=== PATIENT | female | born 1970 | race Caucasian/White ===

== ENCOUNTER 2020-07-20 08:04 | Outpatient (CLI) | payer OTHER, SELFPAY ==
--- NOTE | ~2020-07-20 | MM_ITS ---
EXAMINATION: MM screening trevor BI w cindi HISTORY: Screening mammogram TECHNIQUE: Craniocaudal and mediolateral oblique 3-D tomosynthesis images were obtained and synthetic 2-D images were generated. CAD analysis was submitted and interpreted. COMPARISON: 06/14/2019, 12/30/2017, 12/10/2016 bilateral digital screening mammogram examinations BREAST PARENCHYMAL COMPOSITION: There are scattered areas of fibroglandular density. FINDINGS: There is no evidence of suspicious mass, calcification, or architectural distortion to sugg est malignancy in either breast. There has been no suspicious interval change. IMPRESSION: 1. No mammographic evidence of malignancy. 2. Recommend routine screening mammography in one year. BI-RADS Category 1: Negative Reviewed, dictated and finalized at location A.
== END 2020-07-20 08:05 | disposition home or self-care (01) ==
LOC: ANHIMG 08:06
PROVIDERS: PCP Family Medicine; Visit Provider Obstetrics & Gynecology
DX: Z12.31 Encounter for screening mammogram for malignant neoplasm of breast (principal)
CPT/HCPCS: 77063; 77067

== ENCOUNTER 2020-07-26 07:35 | Outpatient (CLI) | payer OTHER, SELFPAY ==
[2020-07-26 08:13] LABS: Hemoglobin 13.2 g/dL (12.0-15.0); Mean Corpuscular Hemoglobin 31.8 pg (26-34); Mean Corpuscular Volume 96.4 fl (80-100); Mean Platelet Volume 9.7 fl (7.4-10.4); Platelet Count Result 313 k/mm3 (150-375); Red Blood Count 4.15 M/mm3 (4.2-5.4); Red Cell Distribution Width 12.6 % (11.5-14.5); White Blood Count 9.8 K/mm3 (4.5-10.0)
[2020-07-26 08:28] LABS: Alanine Aminotransferase 25 U/L (4-35); Albumin Level 4.1 g/dL (3.5-5.1); Alkaline Phosphatase 100 U/L (38-126); Anion Gap 9 mmol/L (8-16); Aspartate Amino Transferase 27 U/L (14-36); Bilirubin,Total 0.5 mg/dL (0.2-1.3); Blood Urea Nitrogen 13 mg/dL (7-17); Calcium 9.1 mg/dL (8.4-10.2); Carbon Dioxide 27 mmol/L (22-30); Chloride 102 mmol/L (98-107); Cholesterol 181 mg/dL (0-200); Estimated Glomerular Filt Rate > 60; Glucose 134 mg/dL (65-105); HDL Direct 42 mg/dL; Potassium 3.8 mmol/L (3.4-5.0); Sodium 138 mmol/L (137-145); Triglycerides 246 mg/dL (<150); Uric Acid 5.6 mg/dL (2.5-7.5)
[2020-07-26 08:31] LABS: Hemoglobin A1C 7.1 % (<5.7)
[2020-07-26 09:22] LABS: LDL Cholesterol Direct 102 mg/dL
== END 2020-07-26 07:36 | disposition home or self-care (01) ==
PROVIDERS: PCP Family Medicine; Visit Provider Nurse Practitioner Family
DX: E78.2 Mixed hyperlipidemia (principal); I10 Essential (primary) hypertension; Z13.29 Encounter for screening for other suspected endocrine disorder; M79.676 Pain in unspecified toe(s); E11.9 Type 2 diabetes mellitus without complications
CPT/HCPCS: 36415; 80053; 80061; 83036; 84443; 84550; 85027

== ENCOUNTER 2020-09-15 23:12 | Emergency (ER) | payer OTHER, SELFPAY ==
--- NOTE | 2020-09-15 23:20 | PC.NURSE ---
pt walked out of ER before being seen by provider. pt states her symptoms has subsided. 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 pt ambulated out of facility w/ steady gait.
[2020-09-15 23:46] VITALS: BP 168/84; PULSE 78; RESP 16; TEMP 36.6; O2SAT 100
== END 2020-09-15 23:48 | disposition left against medical advice (07) ==
LOC: ANHED 23:28
PROVIDERS: PCP Family Medicine
DX: Z53.21 Procedure and treatment not carried out due to patient leaving prior to being seen by health care provider (principal)
CPT/HCPCS: 99199

== ENCOUNTER 2021-02-04 07:46 | Outpatient (CLI) | payer OTHER, SELFPAY ==
[2021-02-04 08:48] LABS: Hemoglobin A1C 7.4 % (<5.7)
[2021-02-04 09:37] LABS: Vitamin D 25 Hydroxy 47.5 ng/mL
== END 2021-02-04 07:47 | disposition home or self-care (01) ==
PROVIDERS: PCP Family Medicine; Visit Provider Physician Assistant Medical
DX: E11.9 Type 2 diabetes mellitus without complications (principal); E55.9 Vitamin D deficiency, unspecified
CPT/HCPCS: 36415; 82306; 83036

== ENCOUNTER 2021-07-25 09:17 | Emergency (ER) | payer OTHER, SELFPAY ==
[2021-07-25] VITALS (7 sets, daily range): BP systolic 116–153; BP diastolic 65–104; PULSE 65–86; RESP 16–18; TEMP 36.4–36.9; O2SAT 96–99
--- NOTE | 2021-07-25 09:36 | ECG_ITS ---
Measurements Intervals [place] Rate: 79 P: 54 [place]: 151 QRS: 36 QRSD: 94 T: 18 QT: 416 QTc: 479 Interpretive Statements SINUS RHYTHM MINIMAL Q WAVES- INF/LAT LEADS BORDERLINE ST-T WAVE ABNORMALITY- INFERIOR LEADS BASELINE ARTIFACT- I, II, III, AVR, AVL, AVF BORDERLINE ECG Electronically Signed On 07-25-2021 10:03:45 CDT by Marito Wesley D.O.
--- NOTE | 2021-07-25 09:46 | ED.GENADULT ---
HPI - General Adult General Chief complaint: Recheck/Abnormal Lab/Rx Stated complaint: High blood pressure Time Seen by Provider: 07/25/21 09:35 History of Present Illness HPI narrative: Patient is a 51-year-old female with past medical history significant for hypertension, hyperlipidemia, diabetes, obesity who comes to the ED today with concerns for elevated blood pressure. 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 Because of that she checked her blood pressure with her home blood pressure machine and it did not give a number it just read high . She had just taken her blood pressure medications which included metoprolol and losartan. She says she is compliant with her medications. After seeing the high blood pressure reading she developed epigastric discomfort and nausea with vomiting and lightheadedness. She also notes that she has been having a right-sided headache but says that she has this frequently and it is mild and she typically does not even take any medicines for it. Admits to previous history of similar symptoms of the epistaxis and the nausea which was felt to be related to elevated blood pressure reading, however at that point her blood pressure did register on her home machine and it was in the 180s systolically. Denies any recent changes to her blood pressure regimen. No known history of CAD, denies any chest pain or shortness of breath, has never had a stress test before cardiac cath. At the time of my interview she says that she is feeling better and his blood pressure is at reasonable levels. Related Data Allergies Allergy/AdvReac Type Severity Reaction Status Date / Time PETER Inhibitors Allergy Unknown unknown Verified 04/01/21 08:33 Review of Systems Constitutional: Constitutional: Reports as per HPI, Denies fever(s), Denies night sweats and Denies weakness Cardiovascular: Cardiovascular: Denies chest pain, Denies edema, Denies leg edema, Denies dyspnea and Denies orthopnea Respiratory: Respiratory: Denies cough and Denies dyspnea Gastrointestinal: Gastrointestinal: Denies abdominal pain, Denies constipation, Denies diarrhea, Reports nausea and Reports vomiting Musculoskeletal: Musculoskeletal: Denies abnormal gait, Denies back pain, Denies numbness and Denies tingling Neurologic: Denies Abnormal speech present, Denies abnormal gait, Reports dizziness, Denies numbness, Denies tingling and Denies weakness Psychiatric: Psychiatric: Denies homicidal ideation and Denies suicidal ideation FORMERLY [facility] Past Medical History Medical History Bilateral hip bursitis Morbid (severe) obesity due to excess calories Trochanteric bursitis Family History Family History Grandparent Hypertension Family history of lung cancer Mother Hypertension Asthma Hyperlipidemia GERD (gastroesophageal reflux disease) Father No problems noted. 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
[2021-07-25] MEDS: FAMOTIDINE 20 MG/2 ML VIAL IV PUSH (09:54)
[2021-07-25] MEDS: ONDANSETRON INJ 4 MG/2 ML VIAL IV PUSH (09:54)
[2021-07-25 10:10] LABS: Basophils Percent Auto 0.4 % (0.2-1.2); Eosinophils Absolute Auto 0.2 K/mm3 (0-0.3); Eosinophils Percent Auto 2.2 % (0-4.4); Hematocrit 39.7 % (37.0-47.0); Hemoglobin 13.2 g/dL (12.0-15.0); Immature Granulocyte Absolute 0.05 K/mm3 (0.00-0.031); Immature Granulocyte Percent A 0.6 % (0-0.5); Mean Corpuscular HGB Conc 33.2 g/dl (32-36); Mean Corpuscular Hemoglobin 31.7 pg (26-34); Mean Corpuscular Volume 95.2 fl (80-100); Mean Platelet Volume 9.8 fl (7.4-10.4); Monocytes Absolute Auto 0.6 K/mm3 (0.1-0.6); Monocytes Percent Auto 6.5 % (2.6-8.5); Neutrophils Absolute Auto 5.3 K/mm3 (1.3-6.7); Neutrophils Percent Auto 59.3 % (45.5-73.1); Platelet Count Result 287 k/mm3 (150-375); Red Blood Count 4.17 M/mm3 (4.2-5.4); Red Cell Distribution Width 12.5 % (11.5-14.5)
[2021-07-25 10:12] LABS: Add Urine Microscopic? YES; Appearance Urine Clear (Clear); Bilirubin Urine Negative (Negative); Blood Urine Negative (Negative); Color Urine Straw (Yellow); Glucose Urine UA 3+ mg/dL (Negative); Ketones Urine Negative (Negative); Leukocyte Esterase Ur Negative LEU/UL (Negative); Nitrate Urine Negative (Negative); Protein Urine Negative (Negative); RBC Urine 0-2 /hpf (0-2); Specific Grav Ur 1.009 (1.001-1.035); Squamous Epithelial Cell Urine Rare /hpf (Few); Urobilinogen Urine Negative mg/dL (<2.0); WBC Urine 0-3 /hpf
[2021-07-25 10:31] LABS: Troponin I < 0.012 ng/mL (0.000-0.034)
[2021-07-25 10:46] LABS: Alanine Aminotransferase 32 U/L (4-35); Albumin Level 4.3 g/dL (3.5-5.1); Alkaline Phosphatase 108 U/L (38-126); Anion Gap 14 mmol/L (8-16); Aspartate Amino Transferase 38 U/L (14-36); Bilirubin,Total 0.4 mg/dL (0.2-1.3); Blood Urea Nitrogen 14 mg/dL (7-17); Calcium 9.1 mg/dL (8.4-10.2); Carbon Dioxide 20 mmol/L (22-30); Chloride 100 mmol/L (98-107); Estimated CRCL calculation 97 ml/min; Estimated Glomerular Filt Rate > 60; Glucose 398 mg/dL (65-110); Lipase 169 U/L (23-300); Sodium 134 mmol/L (137-145)
[2021-07-25 11:02] LABS: Potassium 3.8 mmol/L (3.4-5.0)
[2021-07-25 12:35] LABS: Hemoglobin A1C 9.8 % (<5.7)
[2021-07-25 12:54] LABS: Troponin I < 0.012 ng/mL (0.000-0.034)
== END 2021-07-25 13:40 | disposition home or self-care (01) ==
PROVIDERS: Physician Assistant Medical; Emergency Provider Emergency Medicine; PCP Family Medicine
DX: I10 Essential (primary) hypertension (principal); R11.2 Nausea with vomiting, unspecified; E78.5 Hyperlipidemia, unspecified; E11.9 Type 2 diabetes mellitus without complications; E66.01 Morbid (severe) obesity due to excess calories; Z68.39 Body mass index [BMI] 39.0-39.9, adult; Z77.22 Contact with and (suspected) exposure to environmental tobacco smoke (acute) (chronic); R94.31 Abnormal electrocardiogram [ECG] [EKG]; Z79.84 Long term (current) use of oral hypoglycemic drugs
CPT/HCPCS: 36415; 80053; 81001; 81025; 83036; 83690; 84484; 85025; 93005; 96374; 96375; 99284; J2405

== ENCOUNTER 2021-08-06 07:49 | Outpatient (CLI) | payer OTHER, SELFPAY ==
[2021-08-06 08:16] LABS: Hematocrit 39.8 % (37.0-47.0); Hemoglobin 12.9 g/dL (12.0-15.0); Mean Corpuscular HGB Conc 32.4 g/dl (32-36); Mean Corpuscular Hemoglobin 31.5 pg (26-34); Mean Corpuscular Volume 97.1 fl (80-100); Mean Platelet Volume 9.2 fl (7.4-10.4); Platelet Count Result 278 k/mm3 (150-375); Red Cell Distribution Width 12.7 % (11.5-14.5); White Blood Count 8.7 K/mm3 (4.5-10.0)
[2021-08-06 08:44] LABS: Alanine Aminotransferase 60 U/L (4-35); Alkaline Phosphatase 78 U/L (38-126); Amylase 69 U/L (30-110); Anion Gap 7 mmol/L (8-16); Aspartate Amino Transferase 68 U/L (14-36); Bilirubin,Total 0.5 mg/dL (0.2-1.3); Blood Urea Nitrogen 8 mg/dL (7-17); Calcium 8.6 mg/dL (8.4-10.2); Carbon Dioxide 27 mmol/L (22-30); Chloride 104 mmol/L (98-107); Cholesterol 201 mg/dL (0-200); Estimated Glomerular Filt Rate > 60; Glucose 177 mg/dL (65-110); HDL Direct 49 mg/dL; Lipase 81 U/L (23-300); Sodium 138 mmol/L (137-145); Triglycerides 284 mg/dL (<150)
[2021-08-06 08:55] LABS: LDL Cholesterol Direct 108 mg/dL
== END 2021-08-06 07:50 | disposition home or self-care (01) ==
LOC: ANHLAB 07:51
PROVIDERS: PCP Family Medicine; Visit Provider Nurse Practitioner Family
DX: R10.9 Unspecified abdominal pain (principal); Z13.220 Encounter for screening for lipoid disorders; Z13.29 Encounter for screening for other suspected endocrine disorder
CPT/HCPCS: 36415; 80053; 80061; 82150; 83690; 84443; 85027

== ENCOUNTER 2021-08-17 07:50 | Outpatient (CLI) | payer OTHER, SELFPAY ==
--- NOTE | ~2021-08-17 | US_ITS ---
US abdomen limited DATE: 08/17/2021 08:15 INDICATION: Abdominal pain, nausea and vomiting TECHNIQUE: Real-time imaging of liver, pancreas, gallbladder COMPARISON: 12/25/2011 CT abdomen pelvis FINDINGS: There is hepatic steatosis. No hepatic space-occupying mass lesion is evident. Normal hepat opedal portal venous flow direction. The pancreas is partially obscured by bowel gas. No gallstones or gallbladder wall thickening are detected. Negative sonographic Augustine's sign. The co mmon bile duct measures 3.8 mm, normal. IMPRESSION: Hepatic steatosis Limited visualization of pancreas Reviewed, dictated and finalized at Location A. Reviewed, dictated and finalized at location A.
== END 2021-08-17 07:51 | disposition home or self-care (01) ==
LOC: ANHIMG 07:56
PROVIDERS: PCP Family Medicine; Visit Provider Nurse Practitioner Family
DX: R10.9 Unspecified abdominal pain (principal); K76.0 Fatty (change of) liver, not elsewhere classified
CPT/HCPCS: 76705

== ENCOUNTER 2021-08-26 07:47 | Outpatient (CLI) | payer OTHER, SELFPAY ==
[2021-08-26 08:34] LABS: Alanine Aminotransferase 40 U/L (4-35); Albumin Level 4.3 g/dL (3.5-5.1); Alkaline Phosphatase 95 U/L (38-126); Aspartate Amino Transferase 41 U/L (14-36); Bilirubin,Total 0.4 mg/dL (0.2-1.3)
[2021-08-26 08:59] LABS: Hepatitis B Surface Antigen Negative (Negative)
[2021-08-26 09:05] LABS: HAV RESULT Negative (Negative); Hepatitis B Core IgM Result Negative (Negative)
[2021-08-26 09:16] LABS: Hepatitis C Virus Antibody Negative (Negative)
[2021-08-29 07:21] LABS: GGT 20 U/L (3-55)
== END 2021-08-26 07:48 | disposition home or self-care (01) ==
PROVIDERS: PCP Family Medicine; Visit Provider Nurse Practitioner Family
DX: R74.01 Elevation of levels of liver transaminase levels (principal)
CPT/HCPCS: 36415; 80074; 80076; 82977

== ENCOUNTER 2021-09-06 08:04 | Outpatient (CLI) | payer OTHER, SELFPAY ==
--- NOTE | ~2021-09-06 | NM_ITS ---
EXAMINATION: NM hepatobiliary wo pharm DATE: 09/06/2021 10:42 INDICATION: Elevation of levels of liver transaminases. COMPARISON: Ultrasound 08/17/2021 TECHNIQUE: 4.7 mCi Tc-99m mebrofenin (Choletec) was administered intravenously. Scintigraphic images of the abdomen were obtained for one hour. Then, the patient drank 8 oz Ensure, and imaging was cont inued for 60 minutes. FINDINGS: There is normal clearance of radiotracer from the blood pool. There is homogeneous tracer u ptake by the liver. Activity progresses to the bowel and gallbladder. Gallbladder ejection fraction (GBEF) was 94%. Note that with this technique, normal GBEF >= 33%. IMPRESSION: 1. Normal hepatobiliary scintigraphy. Reviewed, dictated and finalized at location A. CD REACTOR OPERATOR
== END 2021-09-06 08:05 | disposition home or self-care (01) ==
PROVIDERS: PCP Family Medicine; Visit Provider Nurse Practitioner Family
DX: R74.01 Elevation of levels of liver transaminase levels (principal)
CPT/HCPCS: 78226; A9537

== ENCOUNTER 2021-09-09 09:43 | Emergency (ER) | payer OTHER, SELFPAY ==
--- NOTE | ~2021-09-09 | CT_ITS ---
EXAMINATION: CT abdomen pelvis wo con EXAM DATE: 09/09/2021 10:50 INDICATION: Right-sided flank pain. History of kidney stones. TECHNIQUE: Spiral CT of the abdomen and pelvis was performed without contrast. Axial, coronal and sag ittal images were reviewed. The dose-length product (DLP) for this examination was 366.13 mGy-cm. T he exposure was tailored according to patient size (auto mA exposure control), and iterative reconstr uction (ASIR) was used as additional dose reduction technique. Comparison is made to prior examinatio n from 12/25/2011. FINDINGS: There is a 5 mm stone in the right ureterovesicular junction, mild to moderate hydrouretero nephrosis. There is additional 2 mm right superior calyceal stone. No left nephrolithiasis. The uter us is retroverted and morphologically normal. The bladder is undistended at time of imaging. The l iver, spleen, adrenal glands and pancreas are unremarkable. Gallbladder is unremarkable. No biliary obstruction. There is no retroperitoneal or pelvic lymphadenopathy. The appendix is normal. There is mild descending/sigmoid colonic diverticulosis. There is no adjacen t inflammatory change to suggest diverticulitis. The stomach and small bowel are unremarkable. Ther e is expected amount of colonic stool. No free intraperitoneal gas. The heart is normal in size. There are no pericardial or pleural effusions. The lung bases are unremarkable. There are no osteo blastic or osteolytic lesions identified. IMPRESSION: 1. Right UVJ 5 mm stone, mild to moderate hydroureteronephrosis. consultants would appreciate [facility] [place] KUB. 2. Punctate right nephrolithiasis. Reviewed, dictated and finalized at location B. OLE CASER IMPRESSION: 1. Right UVJ 5 mm stone, mild to moderate hydroureteronephrosis. [facility] consultant s would appreciate baseline KUB. 2. Punctate right nephrolithiasis.
--- NOTE | ~2021-09-09 | XR_ITS ---
EXAMINATION: XR abdomen/kub 1V DATE: 09/09/2021 11:35 INDICATION: Right ureterovesicular junction stone. TECHNIQUE: A supine view of the abdomen was obtained. COMPARISON: CT abdomen and pelvis 09/09/2021 FINDINGS: There are no dilated loops of bowel. There is a phlebolith in right pelvis. There is a 5 mm stone at right ureterovesicular junction. IMPRESSION: 1. 5 mm stone at right ureterovesicular junction. Reviewed, dictated and finalized at location A. BING MACHINE OPERATOR
[2021-09-09 09:56] VITALS: BP 154/103; PULSE 82; RESP 18; TEMP 36.8; O2SAT 100
[2021-09-09 10:27] LABS: Basophils Percent Auto 0.4 % (0.2-1.2); Eosinophils Absolute Auto 0.1 K/mm3 (0-0.3); Eosinophils Percent Auto 0.7 % (0-4.4); Hematocrit 41.6 % (37.0-47.0); Hemoglobin 14.1 g/dL (12.0-15.0); Immature Granulocyte Absolute 0.02 K/mm3 (0.00-0.031); Immature Granulocyte Percent A 0.2 % (0-0.5); Lymphocytes Absolute Auto 1.92 K/mm3 (0.9-3.2); Lymphocytes Percent Auto 20.5 % (18.3-44.2); Mean Corpuscular HGB Conc 33.9 g/dl (32-36); Mean Corpuscular Hemoglobin 31.5 pg (26-34); Mean Corpuscular Volume 92.9 fl (80-100); Mean Platelet Volume 8.9 fl (7.4-10.4); Monocytes Absolute Auto 0.7 K/mm3 (0.1-0.6); Monocytes Percent Auto 7.2 % (2.6-8.5); Neutrophils Absolute Auto 6.7 K/mm3 (1.3-6.7); Platelet Count Result 337 k/mm3 (150-375); Red Blood Count 4.48 M/mm3 (4.2-5.4); Red Cell Distribution Width 12.3 % (11.5-14.5); White Blood Count 9.4 K/mm3 (4.5-10.0)
[2021-09-09 10:42] LABS: Alanine Aminotransferase 39 U/L (4-35); Albumin Level 4.7 g/dL (3.5-5.1); Alkaline Phosphatase 107 U/L (38-126); Anion Gap 11 mmol/L (8-16); Aspartate Amino Transferase 34 U/L (14-36); Bilirubin,Total 0.6 mg/dL (0.2-1.3); Blood Urea Nitrogen 9 mg/dL (7-17); Calcium 9.2 mg/dL (8.4-10.2); Carbon Dioxide 25 mmol/L (22-30); Chloride 102 mmol/L (98-107); Estimated Glomerular Filt Rate > 60; Glucose 159 mg/dL (65-110); Potassium 3.7 mmol/L (3.4-5.0); Sodium 138 mmol/L (137-145)
[2021-09-09 11:20] VITALS: BP 138/69; PULSE 79; RESP 18; O2SAT 99
--- NOTE | 2021-09-09 11:26 | PC.NURSE ---
Bedside report to MICHAEL Capps, to continue care. Pt has had emesis and states pain is not easing up. Has attempted to void x3 times, feels has to go but is unable to produce more than 2 cc's of reddish urine. MYLES Guillen, made aware.
--- NOTE | 2021-09-09 11:52 | ED.GENADULT ---
HPI - General Adult General Chief complaint: Back Pain/Injury Stated complaint: flank pain Time Seen by Provider: 09/09/21 09:55 Source: patient Mode of arrival: ambulatory Limitations: no limitations History of Present Illness HPI narrative: Patient is a 51-year-old female with history of kidney stones and diabetes mellitus presented with chief complaint of right lower flank pain that is radiating into her right groin that began today. Patient reports the symptoms began today but she has been having some right-sided abdominal pain accompanied by nausea and vomiting over the past 2 weeks. Patient states that she has been under the management of her primary care who is working her up for gallbladder dysfunction but she has had a normal gallbladder ultrasound and HIDA scan. Patient states that she has seen Dr. Gutierrez in the past for kidney stones and has had to have 2 stents placed. Patient reports that she feels that she is having trouble urinating. She states she does not know if it is because of her decreased p.o. intake or inability to urinate. She denies fever, chills, chest pain or shortness of breath. Related Data Allergies Allergy/AdvReac Type Severity Reaction Status Date / Time PETER Inhibitors AdvReac Unknown Cough Verified 09/09/21 10:03 Review of Systems Review of Systems: CONSTITUTIONAL: Denies fever, chills, or sweats. EYES: Denies visual changes, redness, or discharge. ENT: Denies rhinorrhea, congestion, sore throat, or otalgia. CARDIOVASCULAR: Denies chest pain, palpitations, or edema. RESPIRATORY: Denies cough or dyspnea. GASTROINTESTINAL: Reports abdominal pain, nausea, vomiting denies diarrhea. GENITOURINARY: Reports, flank pain dysuria or hematuria. SKIN: Denies rash or itching. MUSCULOSKELETAL: Denies back pain, joint pain, or myalgia. NEUROLOGIC: Denies headache, numbness, dizziness, or weakness. PSYCHIATRIC: Denies anxiety or depression. [facility]LY [facility] Past Medical History Medical History (Updated 09/09/21 @ 14:37 by Tere Guillen PA-C) Bilateral hip bursitis Hepatic steatosis Morbid (severe) obesity due to excess calories Trochanteric bursitis Family History Family History Grandparent Hypertension Family history of lung cancer Mother Hypertension Asthma Hyperlipidemia GERD (gastroesophageal reflux disease) Father No problems noted. 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 HEAD: Normocephalic, atraumatic. EYES: PERRLA and EOMI. ENT: Nares clear, no rhinorrhea or epistaxis. Mucous membranes moist. Oropharynx without tonsillar hypertrophy exudate or other lesions. Bilateral TMs pearly bruce nonbulging NECK: Supple. Range of motion intact. CHEST: Clear to auscultation. No respiratory distress. No wheezes rales or rhonchi HEART: Regular rate and rhythm. No murmur heard. Normal peripheral pulses. ABDOMEN: Right CVA tenderness with percussion. Soft, diffuse abdominal tenderness, do not appreciate distention, normal active bowel sounds. EXTREMITIES: Normal range of motion. No edema. SKIN: Warm, dry, no rash. NEURO: No focal deficits. Alert and oriented x3. PSYCH: Normal mood and affect. Course Vital Signs Vital signs: Vital Signs Temperature 98.3 F 09/09/21 09:56 Pulse Rate 82 09/09/21 09:56 Respiratory Rate 18 09/09/21 09:56 Blood Pressure 154/103 H 09/09/21 09:56 Pulse Oximetry 100 09/09/21 09:56 Temperature 98.3 F 09/09/21 09:56 Pulse Rate 71 11
[2021-09-09] MEDS: SODIUM CHLORIDE 0.9% IV 1,000 ML 999 ML IV CONT (11:55)
[2021-09-09] MEDS: ONDANSETRON INJ 4 MG/2 ML VIAL IV PUSH (11:59)
[2021-09-09] MEDS: KETOROLAC 30 MG/ML VIAL (*BKC) IV PUSH (11:59)
[2021-09-09 12:38] VITALS: BP 130/77; PULSE 70; RESP 18; O2SAT 100
[2021-09-09 13:08] LABS: Add Urine Microscopic? YES; Appearance Urine Cloudy (Clear); Bilirubin Urine Negative (Negative); Blood Urine 3+ (Negative); Color Urine Yellow (Yellow); Glucose Urine UA Negative (Negative); Ketones Urine Negative (Negative); Leukocyte Esterase Ur Negative LEU/UL (Negative); Mucus Urine Moderate /lpf; Nitrate Urine Negative (Negative); Protein Urine 1+ mg/dL (Negative); RBC Urine >75 /hpf (0-2); Specific Grav Ur 1.024 (1.001-1.035); Squamous Epithelial Cell Urine Occasional /hpf (Few); Urobilinogen Urine Negative mg/dL (<2.0)
[2021-09-09 13:37] VITALS: BP 142/79; PULSE 71; RESP 18; O2SAT 100
[2021-09-09 14:40] VITALS: BP 124/82; PULSE 78; RESP 18; O2SAT 99
== END 2021-09-09 14:45 | disposition home or self-care (01) ==
PROVIDERS: Physician Assistant; Emergency Provider Emergency Medicine; PCP Family Medicine
DX: N13.2 Hydronephrosis with renal and ureteral calculous obstruction (principal); E66.01 Morbid (severe) obesity due to excess calories; Z68.41 Body mass index [BMI] 40.0-44.9, adult; Z77.22 Contact with and (suspected) exposure to environmental tobacco smoke (acute) (chronic)
CPT/HCPCS: 36415; 74018; 74176; 80053; 81001; 81025; 85025; 87086; 87088; 96361; 96374; 96375; 99284; J1885; J2405; J7030

== ENCOUNTER 2021-09-09 23:45 | Observation (INO) | payer OTHER, SELFPAY ==
--- NOTE | ~2021-09-09 | XR_ITS ---
EXAMINATION: XR retrograde pyelo w/stent RT DATE: 09/10/2021 16:45 INDICATION: Obstructing distal right ureteral stone for retrograde Polygram with stent placement. TECHNIQUE: 5 fluoroscopic images of the abdomen and pelvis were obtained during procedure performed frieda Redman. Radiologist was not present for the imaging or procedure. The amount of fluoroscopy t natan used during this procedure was 0.3 minutes. COMPARISON: CT dated 09/09/2021 FINDINGS: The right-sided nephrolithiasis including the obstructing stone at right ureterovesicular junction is unable to be identified on the oil pipe inspector helper fluoroscopic images. Subsequent images demonstrate retrograde c ontrast injections into the right ureter demonstrating moderate right hydroureter and hydronephrosis. A wire and subsequently an internal ureteral stent are advanced into the right renal pelvis. Final i mages demonstrate the stent with loops formed in the bladder and right renal pelvis. IMPRESSION: 1. Moderate right hydroureteronephrosis resulting from a previously identified obstructing stone at r ight ureterovesicular junction which is not clearly visualized on the provided images and unclear whe ther this has been extracted. Correlate with procedure note. 2. Placement of a right internal ureteral stent which is in expected position. Reviewed, dictated and finalized at location A. SION ROAD SUPERVISOR IMPRESSION: 1. Moderate right hydroureteronephrosis resulting from a previously identified obstructing stone at right ureterovesicular junction which is not clearly visua lized on the provided images and unclear whether this has been extracted. Corre late with procedure note. 2. Placement of a right internal ureteral stent which is in expected position.
[2021-09-10] VITALS (12 sets, daily range): BP systolic 101–157; BP diastolic 65–119; PULSE 79–121; RESP 14–20; TEMP 36.2–37; O2SAT 94–99; BMI 62.4
--- NOTE | 2021-09-10 00:15 | ED.ABDPAIN ---
HPI - Abdominal Pain General Chief Complaint: Abdominal Pain Stated Complaint: r side flank pain Time Seen by Provider: 09/10/21 00:12 Source: patient Mode of arrival: ambulatory Limitations: no limitations History of Present Illness HPI narrative: Patient is a 51-year-old female complaining of right flank pain, 08/04, sharp, radiating to right groin accompanied by nausea and vomiting that started prior to arrival. Patient was seen here earlier today for the same complaint, was diagnosed with a 5 mm UVJ stone and discharged home. Patient states that the pain recurred accompanied by nausea vomiting and that is why she is here. Related Data Allergies Allergy/AdvReac Type Severity Reaction Status Date / Time PETER Inhibitors AdvReac Unknown Cough Verified 09/09/21 10:03 Review of Systems Review of Systems: All systems reviewed & are unremarkable except as noted in HPI and below Constitutional: Constitutional: Denies body ache(s), Denies chills, Denies excessive sweating, Denies fatigue, Denies fever(s), Denies headache(s), Denies lethargy, Denies malaise, Denies weakness and Denies weight loss Eyes: Eyes: Denies blurry vision, Denies change in vision and Denies loss of vision ENT: Denies dizziness, Denies ear discharge, Denies headache(s), Denies lip swelling, Denies epistaxis, Denies nasal congestion, Denies neck pain, Denies throat swelling and Denies tongue swelling Cardiovascular: Cardiovascular: Denies chest pain, Denies chest pain at rest, Denies chest pain with activity, Denies diaphoresis, Denies rapid heart rate, Denies edema, Denies irregular heart rhythm, Denies lightheadedness, Denies palpitations, Denies dyspnea and Denies dyspnea on exertion Respiratory: Respiratory: Denies chest congestion, Denies cough, Denies hemoptysis, Denies dyspnea and Denies dyspnea on exertion Gastrointestinal: Gastrointestinal: Denies abdominal pain, Denies melena, Denies hematochezia, Denies diarrhea and Denies hematemesis Musculoskeletal: Musculoskeletal: Denies abnormal gait, Denies deformity, Denies joint swelling, Denies limited range of motion, Denies neck pain and Denies numbness Neurologic: Denies Abnormal speech present, Denies abnormal gait, Denies confusion, Denies dizziness, Denies headache(s), Denies focal weakness, Denies loss of vision, Denies numbness, Denies Other visual disturbances, Denies Sensory deficit (Neuro) and Denies weakness Psychiatric: Psychiatric: Denies confusion, Denies depression, Denies auditory hallucinations, Denies homicidal ideation and Denies suicidal ideation Endocrine: Endocrine: Denies cold intolerance, Denies excessive sweating, Denies fatigue, Denies heat intolerance and Denies palpitations Hematologic/Lymphatic: Hematologic/Lymphatic: Denies easy bleeding and Denies easy bruising Allergic/Immunologic: Allergic/Immunologic: Denies lip swelling, Denies throat swelling and Denies tongue swelling PMFSH Past Medical History Medical History Bilateral hip bursitis Hepatic steatosis Morbid (severe) obesity due to excess calories Trochanteric bursitis Family History Family History Grandparent Hypertension Family history of lung cancer Mother Hypertension Asthma Hyperlipidemia GERD (gastroesophageal reflux disease) Father No problems noted. 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
[2021-09-10] MEDS: SODIUM CHLORIDE 0.9% IV 1,000 ML 999 ML IV CONT (00:21)
[2021-09-10] MEDS: PROMETHAZINE HCL 25 MG/ML AMPUL 12.5 MG IV PUSH (00:22)
[2021-09-10] MEDS: HYDROmorphone HCL INJ (*CRX) 1 MG/ML SYR IV PUSH ×2 (00:22→02:58)
[2021-09-10 00:29] LABS: Basophils Percent Auto 0.2 % (0.2-1.2); Eosinophils Percent Auto 0.2 % (0-4.4); Hematocrit 41.4 % (37.0-47.0); Immature Granulocyte Absolute 0.04 K/mm3 (0.00-0.031); Immature Granulocyte Percent A 0.3 % (0-0.5); Lymphocytes Absolute Auto 2.08 K/mm3 (0.9-3.2); Lymphocytes Percent Auto 16.1 % (18.3-44.2); Mean Corpuscular HGB Conc 33.8 g/dl (32-36); Mean Corpuscular Hemoglobin 31.8 pg (26-34); Mean Corpuscular Volume 94.1 fl (80-100); Mean Platelet Volume 9.1 fl (7.4-10.4); Monocytes Absolute Auto 0.7 K/mm3 (0.1-0.6); Monocytes Percent Auto 5.7 % (2.6-8.5); Neutrophils Percent Auto 77.5 % (45.5-73.1); Platelet Count Result 320 k/mm3 (150-375); Red Cell Distribution Width 12.5 % (11.5-14.5); White Blood Count 12.9 K/mm3 (4.5-10.0)
[2021-09-10 00:39] LABS: Anion Gap 13 mmol/L (8-16); Blood Urea Nitrogen 14 mg/dL (7-17); Calcium 9.7 mg/dL (8.4-10.2); Carbon Dioxide 23 mmol/L (22-30); Chloride 105 mmol/L (98-107); Estimated Glomerular Filt Rate 59; Glucose 177 mg/dL (65-110); Potassium 3.6 mmol/L (3.4-5.0); Sodium 141 mmol/L (137-145)
[2021-09-10] MEDS: ONDANSETRON INJ 4 MG/2 ML VIAL IV PUSH ×2 (02:57→13:38)
[2021-09-10] MEDS: LACTATED RINGERS 1,000 ML 125 ML IV CONT ×2 (03:02→11:08)
--- NOTE | 2021-09-10 03:18 | ADMGEN ---
This patient, Christine Patel, was admitted to Medical Room 244-. Patient/family oriented to hospital policies and general routines including ID bracelet, bed and alarms, visiting hours, pain management, procedures, bathroom and other care routines, personal items, smoking policy, room service/diet, and visiting hours. Information on how to activate the Rapid Response Team has been discussed. Patient/Family are encouraged to report perceived risks to care and to ask questions if they do not understand what they are told or what they should do.
[2021-09-10 07:19] LABS: Glucose Point of Care 117 mg/dl (65-105)
--- NOTE | 2021-09-10 09:10 | PM.IMHP ---
H&P: HPI History of Present Illness Date/Time: 09/10/21 09:10 Chief Complaint: Nausea/vomiting and Right CVA/Flank pain Narrative: Date/time seen: 09/10/21 09:10 Interval history: Patient is a 51 year old with a past medical history of HTN, kidney stones, HLD, and DM who presented to the ED with complaints of nausea, vomiting, and right flank pain. Patient stated that she has been battling abdominal pain for the last month. She was worked up for gallbladder, however, it all came back negative. However, yesterday she was having problems with nausea and vomiting that brought her to the ED, and was found to have a kidney stone x 5. She stated that she was discharged home with Tramadol and Zofran. She stated that she was taking this, when the nauseas and vomiting came back and was unrelieved with the medications that were prescribed, which brought her back to the ED. This round she noted that she was also having some right flank pain that accompanied the nausea and vomiting. She also stated that she is having frequency with very light urinary output. She stated that she knows most of this is due to her being dry. She denies odorous urine, and stated that her urine is slightly cloudy. She also admits to poor appetite, and stated that the last time she ate was yesterday. Currently she is not having any pain, however, she did just get a does of Dilaudid. She denies chest pain, shortness of breath, dizziness, weakness, sweats, fevers, chills, current nausea, vomiting, abdominal pain, weakness, fatigue, syncope, or falls. She also denies the use of Tums or drinking a lot of soda. She did state that she has had stones in the past that required her to have stents placed (10 years ago, and then some time before that.) Review of Systems Review of Systems: All systems reviewed & are unremarkable except as noted in HPI and below PMFSH Past Medical History Medical History Bilateral hip bursitis Diabetes type 2, controlled Essential (primary) hypertension GERD (gastroesophageal reflux disease) Hepatic steatosis History of kidney stones Hyperlipidemia Morbid (severe) obesity due to excess calories Trochanteric bursitis Surgical History Surgical History History of renal stent Family History Family History Grandparent Hypertension Family history of lung cancer Heart disease Uterine cancer Mother Hypertension Asthma Hyperlipidemia GERD (gastroesophageal reflux disease) Father Diabetes mellitus Sibling Hypertension GERD (gastroesophageal reflux disease) Social History Social History Social History: Patient lives with her of 30 years who will be her surrogate (Ziyad) that lives in [place], [place]. She has two daughters, one which is 23 and , and the other is 17 a senior in high school and wants to be a teacher. She wishes to be a full code at this time. 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
--- NOTE | 2021-09-10 09:29 | PM.IMPN ---
Progress Note: A&P Assessment and Plan (1) Hydronephrosis concurrent with and due to calculi of kidney and ureter: Code(s): N13.2 - Hydronephrosis with renal and ureteral calculous obstruction Status: Acute Assessment and Plan: Abd CT showed 1. Right UVJ 5 mm stone, mild to moderate hydroureteronephrosis. consultants would appreciate baseline KUB. 2. Punctate right nephrolithiasis. Urology consulted Scheduled for retrograde pyelo w/stents Strict I/O Dilaudid and oxicodone for pain Zofran for nausea NPO for now LR 125ml/hr (2) Acute unilateral obstructive uropathy: Code(s): N13.9 - Obstructive and reflux uropathy, unspecified Status: Acute Assessment and Plan: See above (3) Diabetes type 2, controlled: Code(s): E11.9 - Type 2 diabetes mellitus without complications Status: Acute Assessment and Plan: Current glucose 177 Hold home metformin and Ozempic Trend glucose SSI and accu checks NPO for surgical procedure (4) Essential (primary) hypertension: Code(s): I10 - Essential (primary) hypertension Status: Acute Assessment and Plan: Current blood pressure 140/65 Continue home losartan and metoprolol Trend BP adjust medications as needed (5) Mixed hyperlipidemia: Code(s): E78.2 - Mixed hyperlipidemia Status: Acute Assessment and Plan: Continue home lovastatin Time Spent With Patient Time with patient: Greater than 35 minutes Subjective Date/time seen: 09/10/21 09:10 Interval history: Patient is a 51 year old with a past medical history of HTN, kidney stones, HLD, and DM who presented to the ED with complaints of nausea, vomiting, and right flank pain. Patient stated that she has been battling abdominal pain for the last month. She was worked up for gallbladder, however, it all came back negative. However, yesterday she was having problems with nausea and vomiting that brought her to the ED, and was found to have a kidney stone x 5. She stated that she was discharged home with Tramadol and Zofran. She stated that she was taking this, when the nauseas and vomiting came back and was unrelieved with the medications that were prescribed, which brought her back to the ED. This round she noted that she was also having some right flank pain that accompanied the nausea and vomiting. She also stated that she is having frequency with very light urinary output. She stated that she knows most of this is due to her being dry. She denies odorous urine, and stated that her urine is slightly cloudy. She also admits to poor appetite, and stated that the last time she ate was yesterday. Currently she is not having any pain, however, she did just get a does of Dilaudid. She denies chest pain, shortness of breath, dizziness, weakness, sweats, fevers, chills, current nausea, vomiting, abdominal pain, weakness, fatigue, syncope, or falls. She also denies the use of Tums or drinking a lot of soda. She did state that she has had stones in the past that required her to have stents placed (10 years ago, and then some time before that.) Review of Systems Review of Systems: All systems reviewed & are unremarkable except as noted in HPI and below Exam Const: General: cooperative, healthy appearing, comfortable, no acute distress, well developed, alert and awake Nutritional Appearance: well nourished Orientation/consciousness: oriented to person, oriented to place, oriented to time and patient oriented x3 Limitations: no limitations HENMT: Head: normal to inspection Ears: hearing grossly normal bilaterally General nose exam: Normal external nose present, Normal nasal mucous membranes and turbinates present and Normal septum present Mouth: Yes lip normal, Yes tongue normal and Yes dry mucous membranes Teeth and gingiva: abnormal tooth and associated gingiva and poor dentition Eyes: Gene
[2021-09-10] MEDS: METOPROLOL TARTRATE 50 MG TAB 100 MG PO (10:18)
[2021-09-10] MEDS: LOSARTAN POTASSIUM 25 MG TABLET PO (10:18)
--- NOTE | 2021-09-10 11:45 | WPDANESEPPF ---
Anes - Initial Pre Proc Eval Procedure: Operation Date: 09/10/21 16:30 Proposed Procedures p Cystoscopy, Right Ureteroscopy, Right Retrograde Pyelogram, Right Stone Extraction, Possible Right Stent Placement, - Kamaljit Redman MD s Possible Holmium Laser Procedure - Kamaljit Redman MD Date/Time: 09/10/21 11:45 Surgeon: STANISLAW Lopez Pre Op Diagnosis: Acute Unilateral Obstructive Uropathy, N/V Patient Data Age: 51 Gender: F Height: 1.24 m Weight: 96.7 kg Last Vital Signs Temp 37.0 C 09/10/21 06:00 Pulse 96 09/10/21 10:18 Resp 18 09/10/21 06:00 BP 140/65 09/10/21 06:00 Pulse Ox 96 09/10/21 09:35 Allergies Allergy/AdvReac Type Severity Reaction Status Date / Time PETER Inhibitors AdvReac Unknown Cough Verified 09/09/21 10:03 Home Medications Medication Instructions Recorded Confirmed Type lovastatin 20 mg tablet 20 mg PO DAILY #90 tablet 04/23/21 09/10/21 Rx metformin 500 mg tablet,extended 500 mg PO BID #60 tablet 07/29/21 09/10/21 Rx release 24 hr semaglutide 1 mg/dose (4 mg/3 mL) 1 mg SUBCUT WEEKLY #9 ml 07/29/21 09/10/21 Rx subcutaneous pen injector flash glucose scanning reader #1 ea 08/07/21 09/10/21 Rx flash glucose sensor #2 ea 08/07/21 09/10/21 Rx losartan 25 mg tablet 25 mg PO BID #180 tablet 08/07/21 09/10/21 Rx ondansetron 4 mg PO Q6H PRN #20 tablet 09/09/21 09/10/21 Rx ketorolac 10 mg PO QID PRN 09/10/21 09/10/21 History metoprolol tartrate 100 mg tablet 100 mg PO Q12H #180 tablet 09/10/21 09/10/21 Rx Laboratory Tests 09/10/21 09/10/21 09/10/21 00:23 00:23 07:15 WBC 12.9 K/mm3 H K/mm3 (4.5-10.0) RBC 4.40 M/mm3 M/mm3 (4.2-5.4) Hgb 14.0 g/dL g/dL (12.0-15.0) Hct 41.4 % % (37.0-47.0) MCV 94.1 fl fl (80-100) MCH 31.8 pg pg (26-34) MCHC 33.8 g/dl g/dl (32-36) RDW 12.5 % % (11.5-14.5) Plt Count 320 k/mm3 k/mm3 (150-375) MPV 9.1 fl fl (7.4-10.4) Immature Gran % (Auto) 0.3 % % (0-0.5) Neut % (Auto) 77.5 % H % (45.5-73.1) Lymph % (Auto) 16.1 % L % (18.3-44.2) Lewis % (Auto) 5.7 % % (2.6-8.5) Eos % (Auto) 0.2 % % (0-4.4) Baso % (Auto) 0.2 % % (0.2-1.2) Lymph # (Auto) 2.08 K/mm3 K/mm3 (0.9-3.2) Lewis # (Auto) 0.7 K/mm3 H K/mm3 (0.1-0.6) Eos # (Auto) 0.0 K/mm3 K/mm3 (0-0.3) Baso # (Auto) 0.0 K/mm3 K/mm3 (0.0-0.1) Abs Immat Gran (auto) 0.04 K/mm3 H K/mm3 (0.00-0.031) Absolute Neuts (auto) 10.0 K/mm3 H K/mm3 (1.3-6.7) Absolute Nucleated RBC 0.0 K/mm3 K/mm3 (0.0-0.012) Nucleated RBC % 0.0 % % (0.0-0.2) Sodium 141 mmol/L mmol/L (137-145) Potassium 3.6 mmol/L mmol/L (3.4-5.0) Chloride 105 mmol/L mmol/L (98-107) Carbon Dioxide 23 mmol/L mmol/L (22-30) Anion Gap 13 mmol/L mmol/L (8-16) BUN 14 mg/dL D mg/dL (7-17) Creatinine 1.00 mg/dL mg/dL (0.7-1.0) Estim Creat Clear Calc Not Reportable Estimated GFR 59 (59 - ) Glucose 177 mg/dL H mg/dL (65-110) POC Capillary Glucose 117 mg/dl H mg/dl (65-105) Calcium 9.7 mg/dL mg/dL (8.4-10.2) Patient hx anesthesia problems: none Family hx anesthesia problems: none Results Review: All pre-operative results and documents have been reviewed as part of the pre-operative evaluation. [facility] Past Medical History Medical History Bilateral hip bursitis Diabetes type 2, controlled Essential (primary) hypertension GERD (gastroesophageal reflux disease) Hepatic steatosis History of kidney stones Hyperlipidemia Morbid (severe) obesity due to excess calories Trochanteric bursitis Surgical History Surgical History (Reviewed 09/10/21 @ 13:00 by Quentin
[2021-09-10 11:59] LABS: Glucose Point of Care 128 mg/dl (65-105)
--- NOTE | 2021-09-10 12:56 | WPDURCON ---
Assessment and Plan Assessment and plan (1) Acute unilateral obstructive uropathy: Code(s): N13.9 - Obstructive and reflux uropathy, unspecified Status: Acute (2) Hydronephrosis concurrent with and due to calculi of kidney and ureter: Code(s): N13.2 - Hydronephrosis with renal and ureteral calculous obstruction Status: Acute Assessment and Plan: Keep NPO, Obtain Consent: Cystoscopy, right ureteroscopy with stone extraction and possible stent placement, right retrograde pyelogram, possible holmium laser. She will go to the OR today with Dr. Redman. Urology Consult Note HPI Date Seen: 09/10/21 Requesting Physician: STANISLAW Lopez Primary Care Provider: Russel Cole MD Consult Narrative Narrative: Christine Patel is a 51 year old female who is patient of Dr. Redman. She has been seen for kidney stones in the past and has had procedures for them including stent placement. She notes acute onset of right flank pain yesterday with radiation of pain to the right groin. She has had nausea and vomiting for 2 weeks and was being worked up for her gallbladder, although her testing was normal for her gallbladder. She also c/o gross hematuria, but denies frequency, urgency, incontinence or dysuria. She has a slightly elevated WBC of 12.9, creatinine of 1.00, UA shows RBC's but is not suspicious for infection, a urine culture is pending. Her CT/KUB reveals a 5mm right UVJ stone that is visible on KUB as well as punctate right renal stones that are non obstructive. She is afebrile at this time, but continues to have flank pain. Review of Systems Cardiovascular: Cardiovascular: Denies chest pain Respiratory: Respiratory: Reports no additional respiratory complaints Gastrointestinal: Gastrointestinal: Reports abdominal pain, Reports nausea and Reports vomiting Genitourinary: Genitourinary: Reports hematuria, Reports nocturia, Denies dysuria, Reports flank pain and Reports urinary urgency PMFSH Past Medical History Medical History Bilateral hip bursitis Diabetes type 2, controlled Essential (primary) hypertension GERD (gastroesophageal reflux disease) Hepatic steatosis History of kidney stones Hyperlipidemia Morbid (severe) obesity due to excess calories Trochanteric bursitis Surgical History Surgical History History of renal stent Family History Family History Grandparent Hypertension Family history of lung cancer Heart disease Uterine cancer Mother Hypertension Asthma Hyperlipidemia GERD (gastroesophageal reflux disease) Father Diabetes mellitus Sibling Hypertension GERD (gastroesophageal reflux disease) Social History Social History Social History: Patient lives with her of 30 years who will be her surrogate (Ziyad) that lives in [place], [place]. She has two daughters, one which is 23 and , and the other is 17 a senior in high school and wants to be a teacher. She wishes to be a full code at this time. 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
[2021-09-10] MEDS: oxyCODONE HCL (*CRX) 5 MG TAB IR PO (13:34)
[2021-09-10 14:22] LABS: SPREG INTERNAL CONTROL Positive; Serum Qual hCG Negative
--- NOTE | 2021-09-10 15:03 | WPDHPUPDATE1 ---
History and Physical Update Update Date/Time: 09/10/21 15:03 History and Physical has been reviewed, including an updated exam of the patient. There are NO changes in the patient's condition. Risks, benefits, and alternatives have been discussed and questions answered. Patient agrees to proceed with procedure. Proceed with cystoscopy, right retrograde pyelogram, right ureteroscopy with stone extraction, possible laser, possible stent placement
--- NOTE | 2021-09-10 15:04 | PC.NURSE ---
To OR per WILLIAM benitez intact. Report given to MICHAEL Linton.
[2021-09-10 15:32] LABS: Glucose Point of Care 96 mg/dl (65-105)
[2021-09-10] MEDS: SCOPOLAMINE 1.5 MG PATCH TRANSDERM (15:47)
[2021-09-10] MEDS: LACTATED RINGERS 1,000 ML 30 ML IV CONT (15:48)
[2021-09-10] MEDS: ceFAZolin 2 GM/D5W 50 ML 2 GM/50 ML BAG IVPB (16:12)
[2021-09-10] MEDS: LIDOCAINE HCL 2% GEL UROJET 10 ML PKG MUCOUS MEM (16:23)
--- NOTE | 2021-09-10 16:40 | W.PM.PROC2 ---
Procedure Note - Detailed Date of Procedure 09/10/21 Pre-op Diagnosis 5 mm distal right ureteral calculus Post-op Diagnosis same Procedure Performed Cystoscopy, right retrograde pyelogram, right ureteroscopy with stone extraction, right ureteral stent placement 4.8 Qatari contour Surgeon Kamaljit Redman MD Anesthesia general Description of Procedure Patient is taken to the operative suite correctly identified. Once anesthesia was obtained she was placed in a dorsal lithotomy position and prepped and draped usual sterile fashion. Twenty-two Qatari scope inserted the bladder. The right ureteral orifice was cannulated with a guidewire. We dilated with an 8/10 dilator. Rigid ureteral scope was inserted and the stone was visualized. Using an escape basket retrieve the stone its entirety. This is sent for analysis. Pyelogram was then performed to confirm placement of the stent. 4.8 Qatari contour stent was then placed with the proximal end coiled in the renal pelvis and the distal in the bladder. Bladder was drained. 2% viscous lidocaine was inserted urethra. Patient is taken recovery stable condition. She will be discharged home later today and follow up in a week's time for stent removal. Urine Output 100 Drains Yes Packing No Pathology yes Complications No immediate complications Condition stable Disposition PACU
[2021-09-10 16:57] LABS: Glucose Point of Care 104 mg/dl (65-105)
--- NOTE | 2021-09-10 17:30 | P.DS_ITS ---
DS: Admitting Diagnosis Discharge Date 09/10/211729 Admitting Diagnosis Hydronephrosis with ureteral caliculi DS: Discharge Diagnosis Discharge Diagnosis (1) Hydronephrosis concurrent with and due to calculi of kidney and ureter: Code(s): N13.2 - Hydronephrosis with renal and ureteral calculous obstruction Status: Acute Assessment and Plan: * Complaints of * Abd CT showed: 1. Right UVJ 5 mm stone, mild to moderate hydroureteronephrosis. consultants would appreciate baseline KUB. 2. Punctate right nephrolithiasis. * Urology consulted * Scheduled for retrograde pyelo w/stents * Strict I/O * Dilaudid and oxycodone for pain * Zofran for nausea * NPO for now * LR 125ml/hr (2) Acute unilateral obstructive uropathy: Code(s): N13.9 - Obstructive and reflux uropathy, unspecified Status: Acute Assessment and Plan: * See above (3) BRYAN (acute kidney injury): Code(s): N17.9 - Acute kidney failure, unspecified Status: Acute Assessment and Plan: * BUN/CR elevated * Probably related to dehydration * Could also be from stone involvement * Monitor Urine output * LR at 125 ml/hr (4) Diabetes type 2, controlled: Code(s): E11.9 - Type 2 diabetes mellitus without complications Status: Acute Assessment and Plan: * Current glucose 177 * Hold home metformin and Ozempic * Trend glucose * SSI and accu checks * NPO for surgical procedure (5) Essential (primary) hypertension: Code(s): I10 - Essential (primary) hypertension Status: Acute Assessment and Plan: * Current blood pressure 140/65 * Continue home losartan and metoprolol * Trend BP * adjust medications as needed (6) Mixed hyperlipidemia: Code(s): E78.2 - Mixed hyperlipidemia Status: Acute Assessment and Plan: * Continue home lovastatin (7) GERD (gastroesophageal reflux disease): Code(s): K21.9 - Gastro-esophageal reflux disease without esophagitis Status: Inactive Assessment and Plan: * takes Pepcid PRN * Was taking Protonix * Does not seem to be a problem at this time DS: Summary Hospital Course Hospital Course: Patient is a 51-year-old female with a past medical history of hypertension, hyperlipidemia, diabetes, and renal stones who presented the ED with abdominal pain accompanied with nausea vomiting. Upon admission patient was treated with pain medication and fluids. Urology was consulted and took the patient to the OR for stent placement. Patient still had issues with nausea vomiting throughout the admission and was treated with IV Zofran. Pain was well controlled with IV pain medications which were converted to oral pain medication. Patient's labs did exhibit BRYAN with a slightly elevated BUN and creatinine. Post status stent placement patient was requesting to go home. Jillian alexandra okayed patient to go home and patient felt comfortable about managing her care. Throughout the visit patient did deny chest pain, shortness of breath, dizziness, lightheadedness, fevers, sweats, chills. Status at Discharge Functional status at discharge: independent ambulation Overall status at discharge: patient is progressing back to baseline Time Spent with Patient Time attestation: Total time spent providing and/or coordinating discharge services: 52 minutes Time spent: Greater than 30 minutes Exam
--- NOTE | 2021-09-10 17:30 | PM.DS ---
DS: Admitting Diagnosis Discharge Date 09/10/21 1730 Admitting Diagnosis Hydronephrosis with ureteral caliculi DS: Discharge Diagnosis Discharge Diagnosis (1) Hydronephrosis concurrent with and due to calculi of kidney and ureter: Code(s): N13.2 - Hydronephrosis with renal and ureteral calculous obstruction Status: Acute Assessment and Plan: Complaints of Abd CT showed: 1. Right UVJ 5 mm stone, mild to moderate hydroureteronephrosis. consultants would appreciate baseline KUB. 2. Punctate right nephrolithiasis. Urology consulted Scheduled for retrograde pyelo w/stents Strict I/O Dilaudid and oxycodone for pain Zofran for nausea NPO for now LR 125ml/hr (2) Acute unilateral obstructive uropathy: Code(s): N13.9 - Obstructive and reflux uropathy, unspecified Status: Acute Assessment and Plan: See above (3) BRYAN (acute kidney injury): Code(s): N17.9 - Acute kidney failure, unspecified Status: Acute Assessment and Plan: BUN/CR elevated Probably related to dehydration Could also be from stone involvement Monitor Urine output LR at 125 ml/hr (4) Diabetes type 2, controlled: Code(s): E11.9 - Type 2 diabetes mellitus without complications Status: Acute Assessment and Plan: Current glucose 177 Hold home metformin and Ozempic Trend glucose SSI and accu checks NPO for surgical procedure (5) Essential (primary) hypertension: Code(s): I10 - Essential (primary) hypertension Status: Acute Assessment and Plan: Current blood pressure 140/65 Continue home losartan and metoprolol Trend BP adjust medications as needed (6) Mixed hyperlipidemia: Code(s): E78.2 - Mixed hyperlipidemia Status: Acute Assessment and Plan: Continue home lovastatin (7) GERD (gastroesophageal reflux disease): Code(s): K21.9 - Gastro-esophageal reflux disease without esophagitis Status: Inactive Assessment and Plan: takes Pepcid PRN Was taking Protonix Does not seem to be a problem at this time DS: Summary Hospital Course Hospital Course: Patient is a 51-year-old female with a past medical history of hypertension, hyperlipidemia, diabetes, and renal stones who presented the ED with abdominal pain accompanied with nausea vomiting. Upon admission patient was treated with pain medication and fluids. Urology was consulted and took the patient to the OR for stent placement. Patient still had issues with nausea vomiting throughout the admission and was treated with IV Zofran. Pain was well controlled with IV pain medications which were converted to oral pain medication. Patient's labs did exhibit BRYAN with a slightly elevated BUN and creatinine. Post status stent placement patient was requesting to go home. Neurology okayed patient to go home and patient felt comfortable about managing her care. Throughout the visit patient did deny chest pain, shortness of breath, dizziness, lightheadedness, fevers, sweats, chills. Status at Discharge Functional status at discharge: independent ambulation Overall status at discharge: patient is progressing back to baseline Time Spent with Patient Time attestation: Total time spent providing and/or coordinating discharge services: 52 minutes Time spent: Greater than 30 minutes Exam Const: General: cooperative, healthy appearing, comfortable, no acute distress, well developed, alert and awake; No confusion Nutritional Appearance: well nourished Orientation/consciousness: oriented to person, oriented to place, oriented to time, patient oriented x3 and No confusion Limitations: no limitations HENMT: Head: normal to inspection, normocephalic and atraumatic Ears: hearing grossly normal bilaterally, TM normal on the right and TM normal on the left General nose exam: Normal external nose present, Normal nares
--- NOTE | 2021-09-11 09:42 | WPDANESPN ---
Anes - Prog Note Post-Op Date/Time: 09/11/21 09:42 Cardiovascular status: normal Respiratory status: normal Airway patency: baseline Mental status: baseline Post-Op hydration status: normal Vital Signs: Last Vital Signs Temp 98.2 F 09/10/21 16:44 Pulse 85 09/10/21 17:08 Resp 16 09/10/21 17:08 BP 126/79 09/10/21 17:08 Pulse Ox 95 09/10/21 17:08 Pain Score (VAS): 11/04 I/O: Intake & Output 09/10/21 09/11/21 09/11/21 23:59 07:59 15:59 Intake Total 100 Output Total 500 Balance -400 Laboratory Tests 09/10/21 00:23 09/10/21 00:23 09/10/21 09/10/21 09/10/21 11:50 13:17 15:29 POC Capillary Glucose 128 H 96 Serum HCG, Qual Negative 09/10/21 16:55 POC Capillary Glucose 104 Serum HCG, Qual Post-procedural complaints: none Patient Feedback: Patient satisfied with anesthetic care.
== END 2021-09-10 18:12 | disposition home or self-care (01) ==
LOC: ANHED 09-10 01:21 → ANH2MED 09-10 02:12
PROVIDERS: Anesthesiology; Nurse Practitioner; Urology; Admitting Provider Internal Medicine; Emergency Provider Emergency Medicine; PCP Family Medicine; Visit Provider Internal Medicine
PROC: (CPT 52352; principal; 2021-09-10 16:30)
DX: N13.2 Hydronephrosis with renal and ureteral calculous obstruction (principal); N13.9 Obstructive and reflux uropathy, unspecified; N17.9 Acute kidney failure, unspecified; I10 Essential (primary) hypertension; E78.2 Mixed hyperlipidemia; E11.9 Type 2 diabetes mellitus without complications; K21.9 Gastro-esophageal reflux disease without esophagitis; K76.0 Fatty (change of) liver, not elsewhere classified; E66.01 Morbid (severe) obesity due to excess calories; Z68.44 Body mass index [BMI] 60.0-69.9, adult; Z79.84 Long term (current) use of oral hypoglycemic drugs
CPT/HCPCS: 52332; 52352; 36415; 74420; 80048; 82365; 82948; 84703; 85025; 88300; 96361; 96374; 96375; 96376; 99285; A9270; C1769; C2617; G0378; J0690; J1100; J1170; J2250; J2405; J2550; J2704; J3010; J7030; J7120; Q9966

== ENCOUNTER 2021-10-28 09:06 | Outpatient (CLI) | payer OTHER, SELFPAY ==
--- NOTE | ~2021-10-28 | US_ITS ---
EXAMINATION: US renal BI DATE: 10/28/2021 09:42 INDICATION: Renal calculus TECHNIQUE: Multiple ultrasound grayscale images of the kidneys were obtained. COMPARISON: CT dated 09/09/2021 FINDINGS: The right kidney measures 10.8 x 4.7 x 4.8 cm. The left kidney measures 9.4 x 5.0 x 5.1 cm. The kidne ys demonstrate normal echogenicity. 2.2 cm anechoic cyst at the upper pole of the right kidney. There is no hydronephrosis in either kidney. No shadowing renal stones identified. The bladder is nonvisu alized and likely decompressed. Diffuse hepatic steatosis. IMPRESSION: 1. 2.2 cm right renal cyst. Otherwise normal kidneys without hydronephrosis or discernible nephrolit hiasis. 2. Diffuse hepatic steatosis. Reviewed, dictated and finalized at location B. PATIONAL THERAPY AIDE IMPRESSION: 1. 2.2 cm right renal cyst. Otherwise normal kidneys without hydronephrosis or discernible nephrolithiasis. 2. Diffuse hepatic steatosis.
[2021-10-28 10:19] LABS: Alanine Aminotransferase 22 U/L (4-35); Alkaline Phosphatase 94 U/L (38-126); Aspartate Amino Transferase 24 U/L (14-36); Bilirubin,Total 0.3 mg/dL (0.2-1.3)
[2021-10-28 11:11] LABS: Hemoglobin A1C 6.8 % (<5.7)
== END 2021-10-28 09:07 | disposition home or self-care (01) ==
PROVIDERS: Nurse Practitioner Family; PCP Family Medicine; Visit Provider Urology
DX: R74.01 Elevation of levels of liver transaminase levels (principal); E11.9 Type 2 diabetes mellitus without complications; N20.0 Calculus of kidney; K76.0 Fatty (change of) liver, not elsewhere classified; N28.1 Cyst of kidney, acquired
CPT/HCPCS: 36415; 76775; 80076; 83036

== ENCOUNTER 2022-01-13 08:30 | Outpatient (CLI) | payer OTHER, SELFPAY ==
--- NOTE | ~2022-01-13 | MM_ITS ---
EXAMINATION: MM screening trevor BI w cindi HISTORY: Screening mammogram TECHNIQUE: Craniocaudal and mediolateral oblique 3-D tomosynthesis images were obtained and synthetic 2-D images were generated. CAD analysis was submitted and interpreted. COMPARISON: 07/20/2020, 06/22/2019, 12/30/2017 bilateral screening mammogram examinations BREAST PARENCHYMAL COMPOSITION: There are scattered areas of fibroglandular density. FINDINGS: There is no evidence of suspicious mass, calcification, or architectural distortion to sugg est malignancy in either breast. There has been no suspicious interval change. IMPRESSION: 1. No mammographic evidence of malignancy. 2. Recommend routine screening mammography in one year. BI-RADS Category 1: Negative Reviewed, dictated and finalized at location A.
== END 2022-01-13 08:31 | disposition home or self-care (01) ==
LOC: ANHIMG 08:32
PROVIDERS: PCP Family Medicine; Visit Provider Obstetrics & Gynecology
DX: Z12.31 Encounter for screening mammogram for malignant neoplasm of breast (principal)
CPT/HCPCS: 77063; 77067

== ENCOUNTER 2022-02-10 09:19 | Outpatient (CLI) | payer OTHER, SELFPAY ==
[2022-02-10 08:12] LABS: Alanine Aminotransferase 37 U/L (4-35); Albumin Level 4.4 g/dL (3.5-5.1); Alkaline Phosphatase 105 U/L (38-126); Anion Gap 9 mmol/L (8-16); Aspartate Amino Transferase 28 U/L (14-36); Bilirubin,Total 0.2 mg/dL (0.2-1.3); Blood Urea Nitrogen 11 mg/dL (7-17); Calcium 8.5 mg/dL (8.4-10.2); Carbon Dioxide 22 mmol/L (22-30); Chloride 106 mmol/L (98-107); Cholesterol 184 mg/dL (0-200); Estimated Glomerular Filt Rate > 60; Glucose 100 mg/dL (65-110); HDL Direct 37 mg/dL; Potassium 3.7 mmol/L (3.4-5.0); Sodium 137 mmol/L (137-145); Triglycerides 291 mg/dL (<150)
[2022-02-10 08:51] LABS: LDL Cholesterol Direct 88 mg/dL
[2022-02-10 09:37] LABS: Hemoglobin A1C 5.8 % (<5.7)
== END 2022-02-10 09:20 | disposition home or self-care (01) ==
LOC: ANHLAB 09:19
PROVIDERS: Physician Assistant Medical; PCP Family Medicine; Visit Provider Nurse Practitioner Family
DX: E11.9 Type 2 diabetes mellitus without complications (principal); I10 Essential (primary) hypertension
CPT/HCPCS: 36415; 80053; 80061; 83036

== ENCOUNTER 2022-03-27 07:41 | Outpatient (CLI) | payer OTHER, SELFPAY ==
--- NOTE | ~2022-03-27 | MR_ITS ---
EXAMINATION: MR foot RT wo/w con DATE: 03/27/2022 09:42 INDICATION: Soft tissue mass at the right foot TECHNIQUE: Magnetic resonance imaging (MRI) of the right fore/mid foot was performed without and with 16 mL Multihance intravenous contrast. Sequences included axial, sagittal and coronal T1-weighted FS E, sagittal fluid sensitive FSE STIR, axial and coronal T2-weighted FS FSE, axial T1-weighted FS FSE and postcontrast axial, sagittal and coronal T1-weighted FS FSE. COMPARISON: None FINDINGS: There is enhancing synovitis at the periphery of a multinodular loculated T2 hyperintense nonenhancin g ganglion cyst located dorsal to the navicular cuneiform articulation and which measures 1.5 x 1.3 x 0.5 cm. There is mild likely reactive edema and enhancement at the dorsal aspect of the middle cunei form and the immediately adjacent dorsal rim of the distal navicular. Bone alignment is normal. No fr acture or pathologic marrow replacing process. Mild polyarticular osteoarthritis involving the navicu locuneiform, first metatarsophalangeal and a few tarsal metatarsal and interphalangeal joints. No ero sions to suggest an inflammatory arthritis. The visualized medial and lateral stabilizing ligaments o f the ankle, the Lisfranc ligament as well as the collateral ligament complexes at the metatarsophala ngeal and visualized interphalangeal joints are normal. Visualized portions of the flexor and extenso r tendons are normal. Moderate-sized plantar calcaneal spur with mild fluid signal and enhancement at the calcaneal origin of the middle compartment of the plantar aponeurosis consistent with mild plant ar fasciitis. Visualized intrinsic musculature of the foot is unremarkable. IMPRESSION: 1. The reported mass of concern at the dorsal aspect of the midfoot corresponds to a 1.5 x 1.3 x 0.5 cm likely ganglion cyst arising dorsally from the naviculocuneiform articulation. Reviewed, dictated and finalized at location B. IMPRESSION: 1. The reported mass of concern at the dorsal aspect of the midfoot corresponds to a 1.5 x 1.3 x 0.5 cm likely ganglion cyst arising dorsally from the navicul ocuneiform articulation.
[2022-03-27 09:03] LABS: Estimated Glomerular Filt Rate > 60
== END 2022-03-27 07:42 | disposition home or self-care (01) ==
PROVIDERS: PCP Family Medicine; Visit Provider Podiatrist Foot & Ankle Surgery
DX: M19.071 Primary osteoarthritis, right ankle and foot (principal)
CPT/HCPCS: 73720; A9577

== ENCOUNTER 2022-05-21 07:25 | Outpatient (CLI) | payer OTHER, SELFPAY ==
[2022-05-21 08:05] LABS: Cholesterol 186 mg/dL (0-200); HDL Direct 45 mg/dL; Triglycerides 209 mg/dL (<150)
[2022-05-21 08:17] LABS: LDL Cholesterol Direct 88 mg/dL
[2022-05-21 08:27] LABS: Hemoglobin A1C 5.7 % (<5.7)
== END 2022-05-21 07:26 | disposition home or self-care (01) ==
LOC: ANHLAB 07:27
PROVIDERS: PCP Family Medicine; Visit Provider Nurse Practitioner Family
DX: E11.9 Type 2 diabetes mellitus without complications (principal); E78.2 Mixed hyperlipidemia
CPT/HCPCS: 36415; 80061; 83036

== ENCOUNTER 2022-09-26 07:30 | Outpatient (CLI) | payer OTHER, SELFPAY ==
[2022-09-26 08:22] LABS: Hemoglobin A1C 5.8 % (<5.7)
== END 2022-09-26 07:31 | disposition home or self-care (01) ==
LOC: ANHLAB 07:32
PROVIDERS: PCP Family Medicine; Visit Provider Nurse Practitioner Family
DX: E11.9 Type 2 diabetes mellitus without complications (principal)
CPT/HCPCS: 36415; 83036

== ENCOUNTER 2023-05-18 07:40 | Outpatient (CLI) | payer OTHER, SELFPAY ==
[2023-05-18 08:27] LABS: Hematocrit 39.9 % (37.0-47.0); Hemoglobin 13.1 g/dL (12.0-15.0); Mean Corpuscular HGB Conc 32.8 g/dl (32-36); Mean Corpuscular Hemoglobin 31.8 pg (26-34); Mean Corpuscular Volume 96.8 fl (80-100); Mean Platelet Volume 9.2 fl (7.4-10.4); Platelet Count Result 262 k/mm3 (150-375); Red Blood Count 4.12 M/mm3 (4.2-5.4); Red Cell Distribution Width 12.8 % (11.5-14.5); White Blood Count 7.8 K/mm3 (4.5-10.0)
[2023-05-18 08:29] LABS: Urine Cotinine NEGATIVE
[2023-05-18 08:30] LABS: Alanine Aminotransferase 23 U/L (6-35); Albumin Level 4.3 g/dL (3.5-5.1); Alkaline Phosphatase 91 U/L (38-126); Anion Gap 10 mmol/L (8-16); Aspartate Amino Transferase 29 U/L (14-36); Bilirubin,Total 0.5 mg/dL (0.2-1.3); Blood Urea Nitrogen 17 mg/dL (7-17); Calcium 8.8 mg/dL (8.4-10.2); Carbon Dioxide 25 mmol/L (22-30); Chloride 103 mmol/L (98-107); Cholesterol 199 mg/dL (0-200); Estimated Glomerular Filt Rate > 60; Glucose 99 mg/dL (65-110); HDL Direct 49 mg/dL; Potassium 3.8 mmol/L (3.4-5.0); Sodium 138 mmol/L (137-145); Triglycerides 186 mg/dL (<150)
[2023-05-18 08:35] LABS: Hemoglobin A1C 5.8 % (<5.7)
[2023-05-18 08:41] LABS: LDL Cholesterol Direct 106 mg/dL
[2023-05-18 09:08] LABS: Creatinine Urine 252.2 mg/dL
[2023-05-18 09:13] LABS: MALB Creatinine Ratio 5.8 mg/g (0-30); Microalbumin Urine Random 14.7 mg/L (0-16.7)
== END 2023-05-18 07:41 | disposition home or self-care (01) ==
LOC: ANHLAB 07:42
PROVIDERS: PCP Family Medicine; Visit Provider Nurse Practitioner Family
DX: I10 Essential (primary) hypertension (principal); Z13.29 Encounter for screening for other suspected endocrine disorder; E11.9 Type 2 diabetes mellitus without complications
CPT/HCPCS: 36415; 80053; 80061; 80307; 82043; 83036; 84443; 85027

== ENCOUNTER 2023-10-27 08:37 | Outpatient (CLI) | payer OTHER, SELFPAY ==
[2023-10-27 09:52] LABS: Hemoglobin A1C 5.6 % (<5.7)
== END 2023-10-27 08:38 | disposition home or self-care (01) ==
PROVIDERS: PCP Family Medicine; Visit Provider Nurse Practitioner Family
DX: E11.9 Type 2 diabetes mellitus without complications (principal)
CPT/HCPCS: 36415; 83036

== ENCOUNTER 2023-10-27 09:58 | Outpatient (CLI) | payer OTHER, SELFPAY ==
--- NOTE | ~2023-10-27 | MM_ITS ---
EXAMINATION: MM screening [facility] BI w cindi HISTORY: Screening mammogram TECHNIQUE: Craniocaudal and mediolateral oblique 3-D tomosynthesis images were obtained and synthetic 2-D images were generated. CAD analysis was submitted and interpreted. COMPARISON: 01/13/2022, 07/20/2020 BREAST PARENCHYMAL COMPOSITION: There are scattered areas of fibroglandular density. FINDINGS: No suspicious mass, calcification, or architectural distortion are identified in either danielle ast to suggest malignancy. There has been no suspicious interval change. IMPRESSION: 1. No mammographic evidence of malignancy. 2. Recommend routine screening mammography in one year. BI-RADS Category 1: Negative Reviewed, dictated and finalized at location A. 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
== END 2023-10-27 09:59 | disposition home or self-care (01) ==
PROVIDERS: PCP Family Medicine; Visit Provider Obstetrics & Gynecology
DX: Z12.31 Encounter for screening mammogram for malignant neoplasm of breast (principal)
CPT/HCPCS: 36415; 77063; 77067; 83036

== ENCOUNTER 2024-03-10 07:34 | Outpatient (CLI) | payer OTHER, SELFPAY ==
[2024-03-10 09:59] LABS: Hemoglobin A1C 5.4 % (<5.7)
== END 2024-03-10 07:35 | disposition home or self-care (01) ==
PROVIDERS: PCP Family Medicine; Visit Provider Nurse Practitioner Family
DX: E11.9 Type 2 diabetes mellitus without complications (principal)
CPT/HCPCS: 36415; 83036

== ENCOUNTER 2024-06-15 06:38 | Outpatient (CLI) | payer OTHER, SELFPAY ==
[2024-06-15 07:37] LABS: Basophils Absolute Auto 0.1 K/mm3 (0.0-0.1); Basophils Percent Auto 0.6 % (0.2-1.2); Eosinophils Absolute Auto 0.2 K/mm3 (0-0.3); Eosinophils Percent Auto 1.9 % (0-4.4); Hematocrit 42.7 % (37.0-47.0); Hemoglobin 13.4 g/dL (12.0-15.0); Immature Granulocyte Absolute 0.03 K/mm3 (0.00-0.031); Immature Granulocyte Percent A 0.3 % (0-0.5); Lymphocytes Absolute Auto 3.26 K/mm3 (0.9-3.2); Lymphocytes Percent Auto 35.2 % (18.3-44.2); Mean Corpuscular HGB Conc 31.4 g/dl (32-36); Mean Corpuscular Hemoglobin 30.8 pg (26-34); Mean Corpuscular Volume 98.2 fl (80-100); Mean Platelet Volume 9.6 fl (7.4-10.4); Monocytes Absolute Auto 0.7 K/mm3 (0.1-0.6); Monocytes Percent Auto 7.8 % (2.6-8.5); Neutrophils Percent Auto 54.2 % (45.5-73.1); Platelet Count Result 309 k/mm3 (150-375); Red Blood Count 4.35 M/mm3 (4.2-5.4); Red Cell Distribution Width 12.7 % (11.5-14.5); White Blood Count 9.3 K/mm3 (4.5-10.0)
[2024-06-15 07:48] LABS: Alanine Aminotransferase 21 U/L (6-35); Albumin Level 4.4 g/dL (3.5-5.1); Alkaline Phosphatase 93 U/L (38-126); Anion Gap 12 mmol/L (4-12); Aspartate Amino Transferase 27 U/L (14-36); Bilirubin,Total 0.2 mg/dL (0.2-1.3); Blood Urea Nitrogen 14 mg/dL (7-17); Calcium 8.8 mg/dL (8.4-10.2); Carbon Dioxide 27 mmol/L (22-30); Chloride 99 mmol/L (98-107); Cholesterol 182 mg/dL (0-200); Estimated Glomerular Filt Rate > 60; Glucose 99 mg/dL (65-110); HDL Direct 53 mg/dL; Potassium 3.6 mmol/L (3.4-5.0); Sodium 138 mmol/L (137-145); Triglycerides 160 mg/dL (<150)
[2024-06-15 07:58] LABS: LDL Cholesterol Direct 93 mg/dL
[2024-06-15 08:17] LABS: Hemoglobin A1C 5.7 % (<5.7)
[2024-06-15 09:20] LABS: MALB Creatinine Ratio 4.7 mg/g (0-30); Microalbumin Urine Random 10.2 mg/L (0-16.7)
== END 2024-06-15 06:39 | disposition home or self-care (01) ==
PROVIDERS: PCP Family Medicine; Visit Provider Physician Assistant Medical
DX: E04.1 Nontoxic single thyroid nodule (principal); E11.9 Type 2 diabetes mellitus without complications; E78.2 Mixed hyperlipidemia; I10 Essential (primary) hypertension; K76.0 Fatty (change of) liver, not elsewhere classified
CPT/HCPCS: 36415; 80053; 80061; 82043; 83036; 84443; 85025

== ENCOUNTER 2024-10-18 06:43 | Outpatient (CLI) | payer OTHER, SELFPAY ==
[2024-10-18 08:18] LABS: Hemoglobin A1C 5.8 % (<5.7)
== END 2024-10-18 06:44 | disposition home or self-care (01) ==
LOC: ANHLAB 06:43
PROVIDERS: PCP Family Medicine; Visit Provider Nurse Practitioner Family
DX: E11.9 Type 2 diabetes mellitus without complications (principal)
CPT/HCPCS: 36415; 83036

== ENCOUNTER 2025-01-05 06:51 | Outpatient (CLI) | payer OTHER, SELFPAY ==
[2025-01-05 09:31] LABS: Hemoglobin A1C 5.7 % (<5.7)
== END 2025-01-05 06:52 | disposition home or self-care (01) ==
LOC: ANHLAB 06:52
PROVIDERS: PCP Family Medicine; Visit Provider Nurse Practitioner Adult Health
DX: E11.9 Type 2 diabetes mellitus without complications (principal)
CPT/HCPCS: 36415; 83036

== ENCOUNTER 2025-02-17 08:36 | Outpatient (CLI) | payer OTHER, SELFPAY | END 2025-02-17 08:37 | disposition home or self-care (01) | PROVIDERS: PCP Family Medicine; Visit Provider Nurse Practitioner Family | DX: M25.561 Pain in right knee (principal) | CPT/HCPCS: 73564 ==

== ENCOUNTER 2025-02-18 21:14 | Emergency (ER) | payer OTHER, SELFPAY ==
[2025-02-18 21:49] VITALS: BP 152/110; RESP 18; TEMP 36.4; O2SAT 97
--- NOTE | 2025-02-19 01:57 | PC.NURSE ---
Patient was wheeled out of the ED by her visitor. Patient and her visitor stated as they were going by triage desk we are leaving. Patient did not wait for risks of leaving before being seen by a provider and benefits of staying for evaluation were given. Patient was seen getting into car and leaving ED with her visitor. Patient marked as left without being seen, triaged.
== END 2025-02-19 01:59 | disposition left against medical advice (07) ==
PROVIDERS: PCP Family Medicine
DX: M79.661 Pain in right lower leg (principal)
CPT/HCPCS: 99199

== ENCOUNTER 2025-02-22 16:39 | Outpatient (CLI) | payer OTHER, SELFPAY ==
--- NOTE | ~2025-02-22 | US_ITS ---
BILATERAL LOWER EXTREMITY VENOUS ULTRASOUND Ordering provider: AJ Fish History: . Right leg swelling and pain. Normal XR . Comparison: None. FINDINGS: RIGHT LOWER EXTREMITY VEINS: --COMMON FEMORAL: Patent and free of thrombus. Normal compressibility, phasic flow and augmentation. --PROXIMAL SUPERFICIAL FEMORAL: Patent and free of thrombus. Normal compressibility, phasic flow and augmentation. --DISTAL SUPERFICIAL FEMORAL: Patent and free of thrombus. Normal compressibility, phasic flow and au gmentation. --POPLITEAL: Patent and free of thrombus. Normal compressibility, phasic flow and augmentation. --POSTERIOR TIBIAL: Patent and free of thrombus. Normal compressibility, phasic flow and augmentation . LEFT LOWER EXTREMITY VEINS: --COMMON FEMORAL: Patent and free of thrombus. Normal compressibility, phasic flow and augmentation. --PROXIMAL SUPERFICIAL FEMORAL: Patent and free of thrombus. Normal compressibility, phasic flow and augmentation. --DISTAL SUPERFICIAL FEMORAL: Patent and free of thrombus. Normal compressibility, phasic flow and au gmentation. --POPLITEAL: Patent and free of thrombus. Normal compressibility, phasic flow and augmentation. --POSTERIOR TIBIAL: Patent and free of thrombus. Normal compressibility, phasic flow and augmentation . IMPRESSION: Negative bilateral lower extremity venous US. No deep vein thrombosis. Reviewed, dictated and finalized at location A.
== END 2025-02-22 16:40 | disposition home or self-care (01) ==
PROVIDERS: PCP Family Medicine; Visit Provider Nurse Practitioner Family
DX: M79.669 Pain in unspecified lower leg (principal)
CPT/HCPCS: 93970

== ENCOUNTER 2025-03-14 17:36 | Observation (INO) | payer OTHER, SELFPAY ==
[2025-03-14] VITALS (7 sets, daily range): BP systolic 130–131; BP diastolic 72–86; PULSE 87–104; RESP 16–18; TEMP 36.6–36.7; O2SAT 94–100; BMI 38.3
--- NOTE | ~2025-03-14 | CT_ITS ---
EXAMINATION: CT abdomen pelvis wo con DATE: 03/14/2025 20:02 INDICATION: L flank pain, h/o stones TECHNIQUE: Computed tomography (CT) of the abdomen and pelvis was performed without intravenous contr ast. Automated exposure control and iterative reconstruction technique were employed. The dose-length product was 369.10 mGy-cm. COMPARISON: 09/09/2021. FINDINGS: Lower thorax: Unremarkable Liver: Normal. Biliary/Gallbladder: Gallbladder is normal. No bile duct dilation. Pancreas: No mass or duct dilation. Spleen: Normal. Adrenals:No mass. Kidneys: 5 x 8 mm calcification at the left UPJ causing mild pelviectasis and caliectasis and mild le ft perinephric stranding. Normal right kidney GI tract: No small or large bowel dilation. Normal appendix. Diverticulosis without diverticulitis. Mesentery/Peritoneum: No ascites, mass, or free air. Retroperitoneum: No mass. Atherosclerotic calcifications of intra-abdominal arterial vessels. Pelvis: Pelvic organs are within normal limits. Soft Tissues: Soft tissues and body wall unremarkable. Bones: No acute osseous finding. IMPRESSION: 5 x 8 mm left UPJ stone causing mild obstructive uropathy. Reviewed, dictated and finalized at location K.
--- NOTE | ~2025-03-14 | XR_ITS ---
EXAM: XR abdomen/kub 1V DATE: 03/14/2025 22:39 HISTORY: assess stone . COMPARISON: 09/09/2021; CT abdomen pelvis 03/14/2025. FINDINGS: Lung bases excluded from the [id number]. Normal bowel gas pattern. No organomegaly. 4 x 8 mm calcification projecting adjacent to the L2 vertebral body on the left, in the region of the le ft UPJ. Regional bones and soft tissues normal for age. IMPRESSION: Left UPJ stone. Reviewed, dictated and finalized at location K. IMPRESSION: Left UPJ stone.
[2025-03-14] MEDS: ONDANSETRON INJ 4 MG/2 ML VIAL IV PUSH (19:30)
[2025-03-14] MEDS: KETOROLAC 15 MG/ML VIAL (*BKC) IV PUSH (19:30)
[2025-03-14 19:46] LABS: Add Urine Microscopic? YES; Appearance Urine Turbid (Clear); Bacteria Urine 1+ /hpf; Bilirubin Urine Negative (Negative); Blood Urine 3+ (Negative); Budding Yeast Urine Present /hpf; Color Urine Yellow (Yellow); Glucose Urine UA Negative (Negative); Ketones Urine Trace mg/dL (Negative); Leukocyte Esterase Ur 3+ LEU/UL (Negative); Need Manual Microscopic Reviewed; Nitrate Urine Negative (Negative); Protein Urine 2+ mg/dL (Negative); RBC Urine 21-50 /hpf (0-2); Specific Grav Ur 1.024 (1.001-1.035); Squamous Epithelial Cell Urine Occasional /hpf (Few); Urobilinogen Urine 0.2 mg/dL (<2.0); WBC Urine >100 /hpf (0-3)
[2025-03-14 19:57] LABS: Basophils Percent Auto 0.3 % (0.2-1.2); Eosinophils Percent Auto 0.1 % (0-4.4); Hematocrit 44.7 % (37.0-47.0); Hemoglobin 14.2 g/dL (12.0-15.0); Immature Granulocyte Absolute 0.06 K/mm3 (0.00-0.031); Immature Granulocyte Percent A 0.4 % (0-0.5); Lymphocytes Absolute Auto 1.26 K/mm3 (0.9-3.2); Lymphocytes Percent Auto 8.4 % (18.3-44.2); Mean Corpuscular HGB Conc 31.8 g/dl (32-36); Mean Corpuscular Hemoglobin 30.7 pg (26-34); Mean Corpuscular Volume 96.5 fl (80-100); Mean Platelet Volume 9.3 fl (7.4-10.4); Monocytes Absolute Auto 0.3 K/mm3 (0.1-0.6); Monocytes Percent Auto 2.1 % (2.6-8.5); Neutrophils Absolute Auto 13.4 K/mm3 (1.3-6.7); Neutrophils Percent Auto 88.7 % (45.5-73.1); Platelet Count Result 271 k/mm3 (150-375); Red Blood Count 4.63 M/mm3 (4.2-5.4); Red Cell Distribution Width 12.5 % (11.5-14.5); White Blood Count 15.1 K/mm3 (4.5-10.0)
--- NOTE | 2025-03-14 20:08 | ED_ITS ---
HPI - Female Genitourinary General Chief complaint: Urogenital-Female Stated complaint: L. flank pain since 1529 Time Seen by Provider: 03/14/25 19:05 History of Present Illness HPI Narrative: 54F h/o kidney stones p/w severe L flank pain started 4h ago feels like stone. +N/v. Related Data Home Medications ?Medication ?Instructions ?Recorded ?Confirmed ?Last Taken ?Type lovastatin 20 mg tablet 20 mg PO QPM 03/14/25 03/14/25 03/13/25 History Allergies Allergy/AdvReac Type Severity Reaction Status Date / Time PETER Inhibitors AdvReac Unknown Cough Verified 02/16/25 07:34 Review of Systems 2 Review of Systems: All systems reviewed & are unremarkable except as noted in HPI and below PMFSH Past Medical History Medical History Screening for colon cancer GERD (gastroesophageal reflux disease) Hyperlipidemia Hepatic steatosis Diabetes type 2, controlled Screening for thyroid disorder Screening for lipid disorders Screening for thyroid disorder Essential (primary) hypertension History of kidney stones Screening for thyroid disorder Trochanteric bursitis Bilateral hip bursitis Surgical History Surgical History History of renal stent Family History Family History Grandparent Hypertension Family history of lung cancer Heart disease Uterine cancer Mother Hypertension Asthma Hyperlipidemia GERD (gastroesophageal reflux disease) Father Diabetes mellitus Sibling Hypertension GERD (gastroesophageal reflux disease) Social History Social History Social History: Patient lives with her of 30 years who will be her surrogate (Ziyad) that lives in [place], [place]. She has two daughters, one which is 23 and , and the other is 17 a senior in high school and wants to be a teacher. She wishes to be a full code at this time. 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 EYES: EOMI, conjunctiva normal ENT: Hearing grossly intact LUNGS: Nonlabored breathing. HEART: [Regular rate and rhythm] ABD: [Soft], some left CVA tenderness EXT: Normal range of motion SKIN: [No rashes or lesions.] NEURO: [Alert and oriented x 3. No gross focal sensory or strength deficits.] PSYCH: Normal affect Course Vital Signs Vital signs: Vital Signs Temperature 97.9 F 03/14/25 17:43 Pulse Rate 87 03/14/25 17:43 Respiratory Rate 18 03/14/25 17:43 Blood Pressure 130/86 03/14/25 17:43 Pulse Oximetry 100 03/14/25 17:43 Oxygen Delivery Room Air 03/14/25 17:43 Temperature 98.1 F 03/14/25 23:02 Pulse Rate 98 03/14/25 23:02 Respiratory Rate 18 03/14/25 23:02 Blood Pressure 131/72 03/14/25 23:02 Pulse Oximetry 94 03/14/25 23:02 Oxygen Delivery Room Air 03/14/25 17:43 Procedures EJ/Peripheral Line Arm L: EJ/Peripheral Line Date: 03/14/25 Skin Cleansed in Sterile Fashion: Yes Ultrasound Guided: Yes Size (gauge): 18 IV Secured and Dressing Applied: Yes Patient Tolerated Procedure: well and no complications MDM - Female Genitourinary MDM Narrative Medical decision making narrative: ED COURSE AND MEDICAL DECISION MAKIN-year-old female presenting to the emergency department for acute flank pain, symptoms are concerning for likely renal colic versus pyelonephritis. Urinalysis is ordered. [Toradol 15mg, Zofran 4mg] are ordered, IV placed by myself with ultrasound guidance. CT scan of the abdomen/pelvis is ordered. Labs are remarkable for: UA with large wbc's, bacteria, leuk; she does have leukocytosis, slightly elevated lactic. I will start ceftriaxone and IVF. CT scan of the abdomen/pelvis on my independent interpretation shows about 7 mm UPJ stone on left with some hydronephrosis but does not appear to be obstructing. On reevaluation, the patient pain largely resolved. VS normal; not septic. Given the infection was stone I did feel she needed be admitted for possible stent placement, discussed with urologist to arrange for this in the morning. Discussed with hospitalist for admission. Patient agreeable to plan. Lab Data 03/14/25 19:47 03/14/25 19:47 Labs: Lab Results 03/14/25 03/14/25 Range/Units 19:18 19:47 WBC 15.1 H (4.5-10.0) K/mm3 RBC 4.63 (4.2-5.4) M/mm3 Hgb 14.2 (12.0-15.0) g/dL Hct 44.7 (37.0-47.0) % MCV 96.5 (80-100) fl MCH 30.7 (26-34) pg MCHC 31.8 L (32-36) g/dl RDW 12.5 (11.5-14.5) % Plt Count 271 (150-375) k/mm3 MPV 9.3 (7.4-10.4) fl Immature Gran % (Auto) 0.4 (0-0.5) % Neut % (Auto) 88.7 H (45.5-73.1) % Lymph % (Auto) 8.4 L (18.3-44.2) % Haskell % (Auto) 2.1 L (2.6-8.5) % Eos % (Auto) 0.1 (0-4.4) % Baso % (Auto) 0.3 (0.2-1.2) % Lymph # (Auto) 1.26 (0.9-3.2) K/mm3 Haskell # (Auto) 0.3 (0.1-0.6) K/mm3 Eos # (Auto) 0.0 (0-0.3) K/mm3 Baso # (Auto) 0.0 (0.0-0.1) K/mm3 Abs Immat Gran (auto) 0.06 H (0.00-0.031) K/mm3 Absolute Neuts (auto) 13.4 H (1.3-6.7) K/mm3 Absolute Nucleated RBC 0.000 (0.0-0.012) K/mm3 Nucleated RBC % 0.0 (0.0-0.2) % Sodium 142 (137-145) mmol/L Potassium 4.1 (3.4-5.0) mmol/L Chloride 105 (98-107) mmol/L Carbon Dioxide 25 (22-30) mmol/L Anion Gap 12 (4-12) mmol/L BUN 12 (7-17) mg/dL Creatinine 0.84 (0.7-1.0) mg/dL Estim Creat Clear Calc 67 ml/min Estimated GFR > 60 (59 - ) Glucose 127 H (65-110) mg/dL Calcium 9.2 (8.4-10.2) mg/dL Total Bilirubin 0.5 (0.2-1.3) mg/dL AST 36 (14-36) U/L ALT 30 (6-35) U/L Alkaline Phosphatase 125 (38-126) U/L Total Protein 9.0 H (6.3-8.2) g/dL Albumin 4.8 (3.5-5.1) g/dL Urine Color Yellow (Yellow) Urine Appearance Turbid H (Clear) Urine pH 5.0 (5.0-9.0) Ur Specific Narvon 1.024 (1.001-1.035) Urine Protein 2+ H (Negative) mg/dL Urine Glucose (UA) Negative (Negative) mg/dL Urine Ketones Trace H (Negative) mg/dL Ur Blood (Man) 3+ H (Negative) Urine Nitrate Negative (Negative) Urine Bilirubin Negative (Negative) Urine Urobilinogen 0.2 (<2.0) mg/dL Add Ur Microanalysis Reviewed Leukocyte Esterase Rfl 3+ H (Negative) OMAR/UL Urine RBC 21-50 H (0-2) /hpf Urine WBC >100 H (0-3) /hpf Ur Squamous Epith Cells Occasional (Few) /hpf Urine Bacteria 1+ H /hpf Urine Casts 3-5 Urine Yeast (Budding) Present H (None) /hpf Discharge Plan Discharge Clinical Impression: Ureterolithiasis, UTI (urinary tract infection) Patient Disposition: Still a Patient Condition: Stable
[2025-03-14 20:09] LABS: Alanine Aminotransferase 30 U/L (6-35); Albumin Level 4.8 g/dL (3.5-5.1); Alkaline Phosphatase 125 U/L (38-126); Anion Gap 12 mmol/L (4-12); Aspartate Amino Transferase 36 U/L (14-36); Bilirubin,Total 0.5 mg/dL (0.2-1.3); Blood Urea Nitrogen 12 mg/dL (7-17); Calcium 9.2 mg/dL (8.4-10.2); Carbon Dioxide 25 mmol/L (22-30); Chloride 105 mmol/L (98-107); Estimated CRCL calculation 67 ml/min; Estimated Glomerular Filt Rate > 60; Glucose 127 mg/dL (65-110); Potassium 4.1 mmol/L (3.4-5.0); Sodium 142 mmol/L (137-145)
--- NOTE | 2025-03-14 21:01 | PC.NURSE ---
unable to obtain blood cultures, phlebotomy will be called.
--- NOTE | 2025-03-14 21:40 | PC.NURSE ---
phlebotomy unable to obtain blood cultures hospitalist garrett suazo.
[2025-03-14 21:51] LABS: Lactic Acid Reflex 2.6 mmol/L (0.7-2.0)
--- NOTE | 2025-03-14 22:12 | P.HP_ITS ---
H&P: HPI History of Present Illness Date/Time: 03/14/25 22:12 Chief Complaint: Flank pain, kidney stone with UTI Narrative: This is a 54-year-old female patient with a past history hypertension diabetes high cholesterol cared fatty liver disease and kidney stones who is admitted to the hospital for UTI and partially obstructing large left UPJ ureteral stone. Patient reported urinary symptoms of cloudy appearing urine starting a few days ago, frequency about 24 hours ago and dysuria earlier today. Patient denied fever or chills. She reports sudden onset of left flank pain wrapping into abdomen earlier today. Patient has history of multiple kidney stones that needed extraction and several that have passed without intervention. Workup in the emergency department revealed white blood cell count of 15.1 and urinalysis showing greater than 100 wbc's 21-50 rbc's 3+ leukocyte esterase and 1+ bacteria. CT scan shows left UPJ stone 5 x 8 mm partially obstructing causing hydronephrosis. Since patient has UTI and UPJ stone with obstruction, Urology was consulted. Patient started on Rocephin. She will be admitted, NPO after midnight and Urology will consult in the morning to decide if stent place ment will be needed. Patient received ketorolac with pain control in ER. Patient reports nausea improved with Zofran. Patient received IV fluids. Lactic acid was elevated. Blood cultures unable to be drawn due to poor venous access after multiple attempts. IV was placed under Ultrasound by ER provider. Review of Systems Review of Systems: All systems reviewed & are unremarkable except as noted in HPI and below PMFSH Past Medical History Medical History Screening for colon cancer GERD (gastroesophageal reflux disease) Hyperlipidemia Hepatic steatosis Diabetes type 2, controlled Screening for thyroid disorder Screening for lipid disorders Screening for thyroid disorder Essential (primary) hypertension History of kidney stones Screening for thyroid disorder Trochanteric bursitis Bilateral hip bursitis Surgical History Surgical History History of renal stent Family History Family History Grandparent Hypertension Family history of lung cancer Heart disease Uterine cancer Mother Hypertension Asthma Hyperlipidemia GERD (gastroesophageal reflux disease) Father Diabetes mellitus Sibling Hypertension GERD (gastroesophageal reflux disease) Social History Social History Social History: Patient lives with her of 30 years who will be her surrogate (Ziyad) that lives in [place], [place]. She has two daughters, one which is 23 and , and the other is 17 a senior in high school and wants to be a teacher. She wishes to be a full code at this time. 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[employer] Gender identity (if verbalized by the patient): Female Sexual Orientation (if Verbalized by the Patient): Straight or Heterosexual Spiritual care concerns: No Agree to blood products: Yes Meds Home Medications and Allergies Home Medications ?Medication ?Instructions ?Recorded ?Confirmed ?Type blood-glucose sensor ([email or web address] G7 #1 ea 03/14/24 03/14/25 Rx Sensor device) metoprolol tartrate 100 mg tablet 100 mg PO Q12H #180 tabs 12/08/24 03/14/25 Rx semaglutide 2 mg/dose (8 mg/3 mL) 2 mg (0.75 mL) subcut WEEKLY #3 mL 01/31/25 03/14/25 Rx subcutaneous pen injector (Ozempic) cyclobenzaprine 10 mg tablet 10 mg PO TID PRN muscle spasm #30 02/21/25 03/14/25 Rx tabs losartan 25 mg tablet See Rx Instructions .Route 03/14/25 03/14/25 Rx .COMPLEX #180 tabs lovastatin 20 mg tablet 20 mg PO QPM 03/14/25 03/14/25 History Allergies Allergy/AdvReac Type Severity Reaction Status Date / Time PETER Inhibitors AdvReac Unknown Cough Verified 02/16/25 07:34 Vital Signs Vital Signs - 24 hr 03/14/25 17:43 03/14/25 21:36 Temperature 36.6 C Pulse Rate 87 Respiratory Rate 18 Blood Pressure 130/86 Pulse Oximetry 100 95 Oxygen Delivery Room Air Exam Narrative: GENERAL: Well-appearing, well-nourished, and in no acute distress. HEAD: Normocephalic, atraumatic. ENT:? Mucous membranes moist. CHEST: Clear to auscultation.? No respiratory distress. HEART: Regular rate and rhythm. ? Normal peripheral pulses. ABDOMEN: Left flank tenderness CVA tenderness left tenderness to palpation no rebound or guarding EXTREMITIES: Normal range of motion. No peripheral edema. SKIN: Warm dry normal color NEURO: Alert and oriented x3. No focal neuro deficits PSYCH: Normal mood and affect H&P: Results Labs Labs: Short CBC 03/14/25 Range/Units 19:47 WBC 15.1 H (4.5-10.0) K/mm3 Hgb 14.2 (12.0-15.0) g/dL Hct 44.7 (37.0-47.0) % Plt Count 271 (150-375) k/mm3 BMP 03/14/25 19:47 Sodium 142 Potassium 4.1 Chloride 105 Carbon Dioxide 25 BUN 12 Creatinine 0.84 Glucose 127 H Calcium 9.2 Liver Function 03/14/25 Range/Units 19:47 Total Bilirubin 0.5 (0.2-1.3) mg/dL AST 36 (14-36) U/L ALT 30 (6-35) U/L Alkaline Phosphatase 125 (38-126) U/L Albumin 4.8 (3.5-5.1) g/dL Urine 03/14/25 Range/Units 19:18 Urine Color Yellow (Yellow) Urine Appearance Turbid H (Clear) Urine pH 5.0 (5.0-9.0) Ur Specific Rogers 1.024 (1.001-1.035) Urine Protein 2+ H (Negative) mg/dL Urine Glucose (UA) Negative (Negative) mg/dL Pulse Oximetry SpO2 results: 94-100% room air Attestation: I personally reviewed and interpreted this pulse oximetry as follows: Interpretation: No need for supplemental oxygenation at this time Imaging CT scan - abdomen: Radiologist's impression: EXAMINATION: CT abdomen pelvis wo con DATE: 03/14/2025 20:02 INDICATION: L flank pain, h/o stones TECHNIQUE: Computed tomography (CT) of the abdomen and pelvis was performed without intravenous contrast. Automated exposure control and iterative reconstruction technique were employed. The dose-length product was 369.10 mGy-cm. COMPARISON: 09/09/2021. FINDINGS: Lower thorax: Unremarkable Liver: Normal. Biliary/Gallbladder: Gallbladder is normal. No bile duct dilation. Pancreas: No mass or duct dilation. Spleen: Normal. Adrenals:No mass. Kidneys: 5 x 8 mm calcification at the left UPJ causing mild pelviectasis and caliectasis and mild left perinephric stranding. Normal right kidney GI tract: No small or large bowel dilation. Normal appendix. Diverticulosis without diverticulitis. Mesentery/Peritoneum: No ascites, mass, or free air. Retroperitoneum: No mass. Atherosclerotic calcifications of intra-abdominal art erial vessels. Pelvis: Pelvic organs are within normal limits. Soft Tissues: Soft tissues and body wall unremarkable. Bones: No acute osseous finding. IMPRESSION: 5 x 8 mm left UPJ stone causing mild obstructive uropathy. Reviewed, dictated and finalized at location K. Abdominal x-ray: Radiologist's impression: EXAM: XR abdomen/kub 1V DATE: 03/14/2025 22:39 HISTORY: assess stone . COMPARISON: 09/09/2021; CT abdomen pelvis 03/14/2025. FINDINGS: Lung bases excluded from the [id number]. Normal bowel gas pattern. No organomegaly. 4 x 8 mm calcification projecting adjacent to the L2 vertebral body on the left, in the region of the left UPJ. Regional bones and soft tissues normal for age. IMPRESSION: Left UPJ stone. Reviewed, dictated and finalized at location K. Assessment and Plan Assessment and plan (1) Hydronephrosis concurrent with and due to calculi of kidney and ureter: Code(s): N13.2 - Hydronephrosis with renal and ureteral calculous obstruction Status: Acute Assessment and Plan: -Left UPJ stone 4x8mm with hydronephrosis and at least partial urinary obstruction -Symptoms of UTI including cloudy urine, frequency and dysuria -Abnormal urinalysis including greater than 100 wbc's, 1+ urine bacteria, 3+ leukocyte esterase, 21-50 rbc's, negative nitrites -Urology consulted by the emergency department possible stent -Patient admitted obs status, NPO after midnight -Rocephin given in ER and continued on admission (2) UTI (urinary tract infection): Code(s): N39.0 - Urinary tract infection, site not specified Status: Acute Assessment and Plan: See above (3) Essential (primary) hypertension: Code(s): I10 - Essential (primary) hypertension Status: Acute Assessment and Plan: -History HTN, continue home medications -Blood pressure reviewed on 03/14, no immediate intervention required (4) Diabetes type 2, controlled: Qualifiers: Diabetes mellitus terminal operations manager insulin use: without terminal operations manager use Diabetes mellitus complication status: without complication Qualified Code(s): E11.9 - Type 2 diabetes mellitus without complications Code(s): E11.9 - Type 2 diabetes mellitus without complications Status: Acute Assessment and Plan: -A1c usually below 6 -On Ozempic weekly, no other blood sugar control medications -Hold on fingerstick glucose or insulin use unless sugar highly elevated on daily labs (5) History of postoperative nausea: Code(s): Z87.898 - Personal history of other specified conditions Status: Acute Assessment and Plan: -Nausea currently controlled with Zofran -Patient on Ozempic and has prior history of post anesthesia nausea/vomiting Quality If No VTE Prophylaxis Answer both mechanical and pharmacologic: Reason no mechanical VTE proph: low risk/not indicated Reason no pharmacologic proph: low risk/not indicated Total time spent on this patient 85 minutes Hospitalist MIPS Advance Care Plan I have confirmed that the patient's Advanced Care Plan is present, code status is documented, or surrogate decision maker is listed in patient medical record.: Yes Medication Reconciliation I have utilized all available resources to obtain, update and review the patients current medications (includes all prescriptions, OTC, herbals, cannabis, and nutritional supplements).: Yes
[2025-03-14] MEDS: cefTRIAXone 2 GM/NS 100 ML 2 GM/100 ML BAG IVPB (22:32)
[2025-03-14] MEDS: SODIUM CHLORIDE 0.9% IV 1,000 ML 999 ML IV CONT (22:32)
--- NOTE | 2025-03-14 22:55 | ADMGEN ---
This patient, Christine Patel, was admitted to Medical Room 241-01. Patient/family oriented to hospital policies and general routines including ID bracelet, bed and alarms, visiting hours, pain management, procedures, bathroom and other care routines, personal items, smoking policy, room service/diet, and visiting hours. Information on how to activate the Rapid Response Team has been discussed. Patient/Family are encouraged to report perceived risks to care and to ask questions if they do not understand what they are told or what they should do.
[2025-03-14] MEDS: SODIUM CHLORIDE 0.9% IV 1,000 ML 75 ML IV CONT (23:33)
[2025-03-14 23:35] LABS: Reflex Lactic Acid Yes or No Add Lactic
[2025-03-15 00:30] LABS: Lactic Acid 2.4 mmol/L (0.7-2.0)
[2025-03-15] MEDS: HYDROcodone/acetaminophen (*CRX) 5-325 MG TABLET 1 TAB PO (04:32)
[2025-03-15 04:57] VITALS: BP 123/59; PULSE 100; RESP 18; TEMP 37.1; O2SAT 98
[2025-03-15 05:02] LABS: Basophils Percent Auto 0.3 % (0.2-1.2); Eosinophils Absolute Auto 0.1 K/mm3 (0-0.3); Eosinophils Percent Auto 0.5 % (0-4.4); Hematocrit 42.6 % (37.0-47.0); Hemoglobin 12.9 g/dL (12.0-15.0); Immature Granulocyte Absolute 0.04 K/mm3 (0.00-0.031); Immature Granulocyte Percent A 0.3 % (0-0.5); Immature Platelet Fraction Pct 1.9 % (0.9-11.2); Lymphocytes Absolute Auto 2.87 K/mm3 (0.9-3.2); Lymphocytes Percent Auto 24.6 % (18.3-44.2); Mean Corpuscular HGB Conc 30.3 g/dl (32-36); Mean Corpuscular Hemoglobin 31.2 pg (26-34); Mean Corpuscular Volume 102.9 fl (80-100); Mean Platelet Volume 9.8 fl (7.4-10.4); Monocytes Absolute Auto 0.8 K/mm3 (0.1-0.6); Monocytes Percent Auto 7.1 % (2.6-8.5); Neutrophils Absolute Auto 7.8 K/mm3 (1.3-6.7); Neutrophils Percent Auto 67.2 % (45.5-73.1); Platelet Count Result 168 k/mm3 (150-375); Red Blood Count 4.14 M/mm3 (4.2-5.4); Red Cell Distribution Width 12.6 % (11.5-14.5); White Blood Count 11.7 K/mm3 (4.5-10.0)
[2025-03-15 05:15] LABS: Alanine Aminotransferase 23 U/L (6-35); Albumin Level 3.7 g/dL (3.5-5.1); Alkaline Phosphatase 97 U/L (38-126); Anion Gap 10 mmol/L (4-12); Aspartate Amino Transferase 31 U/L (14-36); Bilirubin,Total 0.5 mg/dL (0.2-1.3); Blood Urea Nitrogen 13 mg/dL (7-17); Carbon Dioxide 19 mmol/L (22-30); Chloride 112 mmol/L (98-107); Estimated CRCL calculation 66 ml/min; Estimated Glomerular Filt Rate > 60; Glucose 83 mg/dL (65-110); Magnesium 2.1 mg/dL (1.6-2.3); Potassium 3.8 mmol/L (3.4-5.0); Sodium 141 mmol/L (137-145)
[2025-03-15 08:00] VITALS: O2SAT 98
--- NOTE | 2025-03-15 08:31 | WPDURCON ---
Assessment and Plan Assessment and plan (1) UTI (urinary tract infection): Code(s): N39.0 - Urinary tract infection, site not specified Status: Acute (2) Ureterolithiasis: Code(s): N20.1 - Calculus of ureter Status: Acute (3) Hydronephrosis concurrent with and due to calculi of kidney and ureter: Code(s): N13.2 - Hydronephrosis with renal and ureteral calculous obstruction Status: Acute Plan 54-year-old female with a mm proximal left ureteral stone. Urinalysis concerning for UTI --send urine for culture. Patient to be discharged home with empiric antibiotics times 14 days --patient currently pain free. We discussed option of stent placement during this hospitalization and discharged home with planned definitive stone management with the ESWL versus ureteroscopy. Stone is easily seen on KUB and patient to likely move forward with outpatient ESWL. As the patient received Toradol yesterday will hold off on ESWL for 5 to 7 days. Patient will be discharged home on antibiotics and plan outpatient ESWL next week. Patient understands return to the emergency department develops fevers, chills, severe pain, nausea, vomiting. Questions answered. She agrees with the plan Urology Consult Note HPI Date Seen: 03/15/25 Requesting Physician: Wayne Ye MD Primary Care Provider: Russel Cole MD Consult Narrative Narrative: Christine Patel is a 54 year old female with a history nephrolithiasis she presented to the emergency department last night with acute onset of left-sided flank pain. She was found to have a proximal ureteral stone. She was given Toradol to alleviate her pain. Patient states she is pain free. She denies nausea vomiting fevers or chills. [facility] Past Medical History Medical History Screening for colon cancer GERD (gastroesophageal reflux disease) Hyperlipidemia Hepatic steatosis Diabetes type 2, controlled Screening for thyroid disorder Screening for lipid disorders Screening for thyroid disorder Essential (primary) hypertension History of kidney stones Screening for thyroid disorder Trochanteric bursitis Bilateral hip bursitis Surgical History Surgical History History of renal stent Family History Family History Grandparent Hypertension Family history of lung cancer Heart disease Uterine cancer Mother Hypertension Asthma Hyperlipidemia GERD (gastroesophageal reflux disease) Father Diabetes mellitus Sibling Hypertension GERD (gastroesophageal reflux disease) Social History Social History Social History: Patient lives with her of 30 years who will be her surrogate (Ziyad) that lives in [place], [place]. She has two daughters, one which is 23 and , and the other is 17 a senior in high school and wants to be a teacher. She wishes to be a full code at this time. 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[employer] Gender identity (if verbalized by the patient): Female Sexual Orientation (if Verbalized by the Patient): Straight or Heterosexual Spiritual care concerns: No Agree to blood products: Yes Meds Home Medications and Allergies Home Medications ?Medication ?Instructions ?Recorded ?Confirmed ?Type blood-glucose sensor (Dexcom G7 #1 ea 03/14/24 03/14/25 Rx Sensor device) metoprolol tartrate 100 mg tablet 100 mg PO Q12H #180 tabs 12/08/24 03/14/25 Rx semaglutide 2 mg/dose (8 mg/3 mL) 2 mg (0.75 mL) subcut WEEKLY #3 mL 01/31/25 03/14/25 Rx subcutaneous pen injector (Ozempic) cyclobenzaprine 10 mg tablet 10 mg PO TID PRN muscle spasm #30 02/21/25 03/14/25 Rx tabs losartan 25 mg tablet See Rx Instructions .Route 03/14/25 03/14/25 Rx .COMPLEX #180 tabs lovastatin 20 mg tablet 20 mg PO QPM 03/14/25 03/14/25 History Allergies Allergy/AdvReac Type Severity Reaction Status Date / Time PETER Inhibitors AdvReac Unknown Cough Verified 02/16/25 07:34 Vital Signs Vital Signs - 24 hr 03/14/25 17:43 03/14/25 21:36 03/14/25 21:45 Temperature 36.6 C Pulse Rate 87 Respiratory Rate 18 Blood Pressure 130/86 Pulse Oximetry 100 95 97 Oxygen Delivery Room Air 03/14/25 22:00 03/14/25 22:20 03/14/25 22:24 Temperature Pulse Rate 104 H Respiratory Rate 16 Blood Pressure Pulse Oximetry 95 95 96 Oxygen Delivery 03/14/25 23:02 03/14/25 23:26 03/15/25 04:57 Temperature 36.7 C 37.1 C Pulse Rate 98 100 Respiratory Rate 18 18 Blood Pressure 131/72 123/59 L Pulse Oximetry 94 98 Oxygen Delivery Room Air Exam Narrative: Patient is awake and alert. She is no acute distress. Breathing nonlabored. Abdomen soft nontender nondistended Results Labs 03/15/25 04:30 03/15/25 04:30 Labs: Short CBC 03/14/25 03/15/25 Range/Units 19:47 04:30 WBC 15.1 H 11.7 H (4.5-10.0) K/mm3 Hgb 14.2 12.9 (12.0-15.0) g/dL Hct 44.7 42.6 (37.0-47.0) % Plt Count 271 168 (150-375) k/mm3 BMP 03/14/25 03/15/25 19:47 04:30 Sodium 142 141 Potassium 4.1 3.8 Chloride 105 112 H Carbon Dioxide 25 19 L BUN 12 13 Creatinine 0.84 0.87 Glucose 127 H 83 Calcium 9.2 8.0 L Liver Function 03/14/25 03/15/25 Range/Units 19:47 04:30 Total Bilirubin 0.5 0.5 (0.2-1.3) mg/dL AST 36 31 (14-36) U/L ALT 30 23 (6-35) U/L Alkaline Phosphatase 125 97 (38-126) U/L Albumin 4.8 3.7 (3.5-5.1) g/dL Urine 03/14/25 Range/Units 19:18 Urine Color Yellow (Yellow) Urine Appearance Turbid H (Clear) Urine pH 5.0 (5.0-9.0) Ur Specific [place] 1.024 (1.001-1.035) Urine Protein 2+ H (Negative) mg/dL Urine Glucose (UA) Negative (Negative) mg/dL Imaging Radiologist's impression: DATE: 03/14/2025 20:02 INDICATION: L flank pain, h/o stones TECHNIQUE: Computed tomography (CT) of the abdomen and pelvis was performed without intravenous contrast. Automated exposure control and iterative reconstruction technique were employed. The dose-length product was 369.10 mGy-cm. COMPARISON: 09/09/2021. FINDINGS: Lower thorax: Unremarkable Liver: Normal. Biliary/Gallbladder: Gallbladder is normal. No bile duct dilation. Pancreas: No mass or duct dilation. Spleen: Normal. Adrenals:No mass. Kidneys: 5 x 8 mm calcification at the left UPJ causing mild pelviectasis and caliectasis and mild left perinephric stranding. Normal right kidney GI tract: No small or large bowel dilation. Normal appendix. Diverticulosis without diverticulitis. Mesentery/Peritoneum: No ascites, mass, or free air. Retroperitoneum: No mass. Atherosclerotic calcifications of intra-abdominal arterial vessels. Pelvis: Pelvic organs are within normal limits. Soft Tissues: Soft tissues and body wall unremarkable. Bones: No acute osseous finding. IMPRESSION: 5 x 8 mm left UPJ stone causing mild obstructive uropathy. Reviewed, dictated and finalized at [facility]. Abdominal x-ray: Radiologist's impression: EXAM: XR abdomen/kub 1V DATE: 03/14/2025 22:39 HISTORY: assess stone . COMPARISON: 09/09/2021; CT abdomen pelvis 03/14/2025. FINDINGS: Lung bases excluded from the [id number]. Normal bowel gas pattern. No organomegaly. 4 x 8 mm calcification projecting adjacent to the L2 vertebral body on the left, in the region of the left UPJ. Regional bones and soft tissues normal for age. IMPRESSION: Left UPJ stone. Reviewed, dictated and finalized at location K.
--- NOTE | 2025-03-15 09:12 | P.DS_ITS ---
DS: Admitting Diagnosis Discharge Date 03/15/25 Admitting Diagnosis Flank pain, kidney stone with UTI DS: Discharge Diagnosis Discharge Diagnosis (1) Hydronephrosis concurrent with and due to calculi of kidney and ureter: Code(s): N13.2 - Hydronephrosis with renal and ureteral calculous obstruction Status: Acute Assessment and Plan: -Left UPJ stone 4x8mm with hydronephrosis and at least partial urinary obstruction -Symptoms of UTI including cloudy urine, frequency and dysuria -Abnormal urinalysis including greater than 100 wbc's, 1+ urine bacteria, 3+ leukocyte esterase, 21-50 rbc's, negative nitrites -Urology consulted by the emergency department possible stent -Patient admitted obs status, NPO after midnight -Rocephin given in ER and continued on admission (2) UTI (urinary tract infection): Code(s): N39.0 - Urinary tract infection, site not specified Status: Acute Assessment and Plan: See above (3) Essential (primary) hypertension: Code(s): I10 - Essential (primary) hypertension Status: Acute Assessment and Plan: -History HTN, continue home medications -Blood pressure reviewed on 03/14, no immediate intervention required (4) Diabetes type 2, controlled: Qualifiers: Diabetes mellitus intermediate designer insulin use: without intermediate designer use Diabetes mellitus complication status: without complication Qualified Code(s): E11.9 - Type 2 diabetes mellitus without complications Code(s): E11.9 - Type 2 diabetes mellitus without complications Status: Acute Assessment and Plan: -A1c usually below 6 -On Ozempic weekly, no other blood sugar control medications -Hold on fingerstick glucose or insulin use unless sugar highly elevated on daily labs (5) History of postoperative nausea: Code(s): Z87.898 - Personal history of other specified conditions Status: Acute Assessment and Plan: -Nausea currently controlled with Zofran -Patient on Ozempic and has prior history of post anesthesia nausea/vomiting DS: Summary Hospital Course Hospital Course: patient presented with c/o left flank pain and was found to have 5 x 8 mm bennie cification at the left UPJ causing mild pelviectasis and caliectasis, patient urine was suspicious for UTI. patient was seen by the urologist and it was decided that patient will have ESWL as outpatient, patient is clinically stable, will discharge on cefdinir for 14 days and follow up on urine culture. Time Spent with Patient Time attestation: Total time spent providing and/or coordinating discharge services: Exam Narrative: Patient is comfortable, NAD HEENT: eyes are clear and none icteric LUNGS:CTA HEART: RR S1S2 ABD: BS+, Soft and nontender Lower extremities: no edema SKIN: nonjaundiced Neuro: grossly intact. DS: Data Data Completed and Pending Labs on day of discharge: Labs from last 24 hours 03/15/25 03/15/25 03/14/25 04:30 00:01 21:32 WBC 11.7 H RBC 4.14 L Hgb 12.9 Hct 42.6 MCV 102.9 H D MCH 31.2 MCHC 30.3 L RDW 12.6 Plt Count 168 MPV 9.8 Immature Gran % (Auto) 0.3 Neut % (Auto) 67.2 Lymph % (Auto) 24.6 Elliott % (Auto) 7.1 Eos % (Auto) 0.5 Baso % (Auto) 0.3 Lymph # (Auto) 2.87 Elliott # (Auto) 0.8 H Eos # (Auto) 0.1 Baso # (Auto) 0.0 Abs Immat Gran (auto) 0.04 H Absolute Neuts (auto) 7.8 H Absolute Nucleated RBC 0.000 Nucleated RBC % 0.0 % Immature Plt Fraction 1.9 Sodium 141 Potassium 3.8 Chloride 112 H Carbon Dioxide 19 L Anion Gap 10 BUN 13 Creatinine 0.87 Estim Creat Clear Calc 66 Estimated GFR > 60 Glucose 83 Lactic Acid 2.4 H 2.6 H Calcium 8.0 L Magnesium 2.1 Total Bilirubin 0.5 AST 31 ALT 23 Alkaline Phosphatase 97 Total Protein 7.0 Albumin 3.7 Urine Color Urine Appearance Urine pH Ur Specific [place] Urine Protein Urine Glucose (UA) Urine Ketones Ur Blood (Man) Urine Nitrate Urine Bilirubin Urine Urobilinogen Add Ur Microanalysis Leukocyte Esterase Rfl Urine RBC Urine WBC Ur Squamous Epith Cells Urine Bacteria Urine Casts Urine Yeast (Budding) 03/14/25 03/14/25 19:47 19:18 WBC 15.1 H RBC 4.63 Hgb 14.2 Hct 44.7 MCV 96.5 MCH 30.7 MCHC 31.8 L RDW 12.5 Plt Count 271 MPV 9.3 Immature Gran % (Auto) 0.4 Neut % (Auto) 88.7 H Lymph % (Auto) 8.4 L Elliott % (Auto) 2.1 L Eos % (Auto) 0.1 Baso % (Auto) 0.3 Lymph # (Auto) 1.26 Elliott # (Auto) 0.3 Eos # (Auto) 0.0 Baso # (Auto) 0.0 Abs Immat Gran (auto) 0.06 H Absolute Neuts (auto) 13.4 H Absolute Nucleated RBC 0.000 Nucleated RBC % 0.0 % Immature Plt Fraction Sodium 142 Potassium 4.1 Chloride 105 Carbon Dioxide 25 Anion Gap 12 BUN 12 Creatinine 0.84 Estim Creat Clear Calc 67 Estimated GFR > 60 Glucose 127 H Lactic Acid Calcium 9.2 Magnesium Total Bilirubin 0.5 AST 36 ALT 30 Alkaline Phosphatase 125 Total Protein 9.0 H Albumin 4.8 Urine Color Yellow Urine Appearance Turbid H Urine pH 5.0 Ur Specific [place] 1.024 Urine Protein 2+ H Urine Glucose (UA) Negative Urine Ketones Trace H Ur Blood (Man) 3+ H Urine Nitrate Negative Urine Bilirubin Negative Urine Urobilinogen 0.2 Add Ur Microanalysis Reviewed Leukocyte Esterase Rfl 3+ H Urine RBC 21-50 H Urine WBC >100 H Ur Squamous Epith Cells Occasional Urine Bacteria 1+ H Urine Casts 3-5 Urine Yeast (Budding) Present H Discharge Plan Discharge Attending physician on discharge: Wayne Ye Consulting providers: Michael Luciano; Kuldeep Coates; Lauro Velarde Discharging Clinician: Logan Pimentel Patient Disposition: Home Activity: as tolerated Diet: heart healthy Discharge Instructions: Patient to follow discharge care instruction from her urologist and follow up as scheduled, patient to follow up with her primary care provider as soon as possible. patient is instructed if any symptoms worsen to go to nearest ER. Patient Instructions: Antibiotic Form, Pain Management (DC) Patient Language: [place] Stand Alone Forms: General Discharge Information Follow-up/Referrals: Michael Luciano MD [Physician] - Russel Cole MD [Primary Care Provider] - Discharge Medications: New hydrocodone-acetaminophen 5-325 mg Tablet 1 tablet PO Q4H PRN (Reason: Pain Rated 4-6) Qty: 10 0RF cefdinir 300 mg capsule 300 mg PO Q12H Qty: 28 0RF ondansetron 4 mg tablet,disintegrating 4 mg PO Q8H PRN (Reason: nausea and vomiting) Qty: 10 0RF Continued lovastatin 20 mg tablet 20 mg PO QPM (DME) Dexcom G7 Sensor Device See Rx Instructions .Route Qty: 1 3RF Rx Instructions: As directed; change sensor every 10 days metoprolol tartrate 100 mg tablet 100 mg PO Q12H Qty: 180 1RF Ozempic 2 mg/dose (8 mg/3 mL) pen injector 2 mg subcut WEEKLY Qty: 3 2RF cyclobenzaprine 10 mg tablet 10 mg PO TID PRN (Reason: muscle spasm) Qty: 30 0RF losartan 25 mg tablet See Rx Instructions .ROUTE .COMPLEX Qty: 180 0RF Dose Instruction: Take 1 tablet by mouth twice daily Rx Instructions: Take 1 tablet by mouth twice daily Date of admission: 03/14/25 20:41 Primary Care Provider: Russel Cole Admitting Provider: Wayne Ye Attending physician on admission: Logan Pimentel Condition: Stable
== END 2025-03-15 09:19 | disposition home or self-care (01) ==
LOC: ANHED 19:49 → ANH2MED 23:15
PROVIDERS: Student in an Organized Health Care Education/Training Program; Admitting Provider Internal Medicine; Emergency Provider Emergency Medicine; PCP Family Medicine; Visit Provider Family Medicine
DX: N13.6 Pyonephrosis (principal); Z87.442 Personal history of urinary calculi; I10 Essential (primary) hypertension; E11.9 Type 2 diabetes mellitus without complications; E78.5 Hyperlipidemia, unspecified; K21.9 Gastro-esophageal reflux disease without esophagitis; K76.0 Fatty (change of) liver, not elsewhere classified; Z79.85 Long-term (current) use of injectable non-insulin antidiabetic drugs; Z79.899 Other long term (current) drug therapy; Z87.898 Personal history of other specified conditions
CPT/HCPCS: 36415; 74018; 74176; 80053; 81001; 83605; 83735; 85025; 85055; 87077; 87086; 87186; 96361; 96365; 96375; 96376; 99285; A9270; G0378; J0696; J1885; J2405; J7030

== ENCOUNTER 2025-03-28 08:08 | Outpatient (CLI) | payer OTHER, SELFPAY ==
--- NOTE | 2025-03-28 08:31 | ECG_ITS ---
Test Date: 2025-03-28 08:44:36 Measurements Intervals [place] Rate: 69 P: 55 OK: 156 QRS: 28 QRSD: 93 T: 23 QT: 439 QTc: 473 Interpretive Statements SINUS RHYTHM BASELINE ARTIFACT- III NORMAL ECG No previous ECG available for comparison Electronically Signed On 03-28-2025 08:53:00 CDT by Marito Wesley D.O.
[2025-03-28 08:53] LABS: Prothrombin Time 12.9 Seconds (11.1-14.7)
[2025-03-28 08:54] LABS: Partial Thromboplastin Time 23.4 Seconds (22.3-36.8)
== END 2025-03-28 08:09 | disposition home or self-care (01) ==
PROVIDERS: PCP Family Medicine; Visit Provider Urology
DX: N20.0 Calculus of kidney (principal); I10 Essential (primary) hypertension; Z01.818 Encounter for other preprocedural examination
CPT/HCPCS: 36415; 85610; 85730; 93005

== ENCOUNTER 2025-03-31 00:58 | Day surgery (SDC) | payer OTHER, SELFPAY ==
[2025-03-27 08:30] VITALS: BMI 37.2
--- NOTE | 2025-03-27 08:31 | PC.NURSE ---
Report to the Outpatient Waiting Room, entrance under the green pavilion located off [facility], at time _0630_ on date _[id number]_. Planned Procedure Time: _0830_.? Time changes happen often and if your time is changed the preop area will call you the afternoon before. - You and your visitor will be asked to self-screen and do not enter if you have any COVID symptoms. Please call surgeon if you need to reschedule. - A mask is optional within the hospital at this time. Patients may have clear liquids (water, carbonated beverages, clear teas, apple juice) until 3 hours prior to surgery with a maximum of 20 ounces. - No food from midnight until time of surgery and no smoking, or chewing tobacco (or any form of nicotine). No chewing gum, candy or mints. Take only the following medications with a SIP of water on the morning of surgery: ____Metoprolol, and if needed Hydrocodone and or Zofran.___ DO NOT STOP ANY OF YOUR OTHER PRESCRIPTION MEDICATIONS PRIOR TO SURGERY EXCEPT THE FOLLOWING Hold all vitamins and supplements for 3 days per anesthesiologist. Medications to discontinue per physician Date to take last dose Please no make-up, nail omani, hairspray, perfume, deodorant, or body powder the day of surgery.? No jewelry (including any body piercings) or valuables the day of surgery, leave them at home.? Please take a shower or bath the night before, or the morning of, surgery with an antibacterial soap.? Wear comfortable, loose fitting clothing.? - Jewelry must be removed prior to entering the operating room.? Rings and piercings that are not removed may be cut off. - The hospital will not accept responsibility for valuables.? - Please leave all valuables, including medications, at home the day of surgery. If you are going home after surgery, a licensed operator and truck driver must drive you home.? - NO public transportation without another adult if you receive anesthesia. - We recommend that an adult stay with you for 24 hours following discharge. - We also recommend that you do not drive, make important decision, drink alcoholic beverages, or take any drugs that were not prescribed by your health care provider for at least 24 hours after your discharge time. Follow any additional instructions given to you from your surgeon. Telephone instructions given to __Bats[place]aa___and asked if any additional questions and then verbalized understanding. Patient advised to call surgeon office or pre surgery nurse liaison [phone] if any additional questions.
[2025-03-31] VITALS (7 sets, daily range): BP systolic 115–131; BP diastolic 46–85; PULSE 73–85; RESP 12–18; TEMP 36.3–36.5; O2SAT 98–100; BMI 38.0
--- NOTE | ~2025-03-31 | XR_ITS ---
Supine and upright views of the abdomen Clinical history: Lithotripsy COMPARISON: 03/14/2025 Findings: Bowel gas pattern is nonspecific. No evidence for obstruction or free air. Stable probable 6 mm stone at the left UPJ or proximal left ureter. Osseous structures are intact. Impression: Stable 6 mm stone at the left UPJ or proximal left ureter. Reviewed, dictated and finalized at [facility]. Impression: Stable 6 mm stone at the left UPJ or proximal left ureter.
[2025-03-31] MEDS: LACTATED RINGERS 1,000 ML 30 ML IV CONT (07:05)
[2025-03-31 07:11] LABS: Glucose Point of Care 120 mg/dl (65-105)
[2025-03-31 07:20] LABS: BEDSIDEPREGUCG Negative (Negative)
--- NOTE | 2025-03-31 07:25 | WPDHPUPDATE1 ---
History and Physical Update Update Date/Time: 03/31/25 07:25 History and Physical has been reviewed, including an updated exam of the patient. There are NO changes in the patient's condition. Risks, benefits, and alternatives have been discussed and questions answered. Patient agrees to proceed with procedure.
[2025-03-31 07:26] LABS: Add Urine Microscopic? YES; Appearance Urine Clear (Clear); Bacteria Urine None Seen /hpf; Bilirubin Urine Negative (Negative); Blood Urine Negative (Negative); Color Urine Yellow (Yellow); Glucose Urine UA Negative (Negative); Ketones Urine Negative (Negative); Leukocyte Esterase Ur 1+ LEU/UL (Negative); Nitrate Urine Negative (Negative); Non Pathogenic Casts 0-2; Protein Urine Negative (Negative); RBC Urine 0-2 /hpf (0-2); Squamous Epithelial Cell Urine Occasional /hpf (Few); Urobilinogen Urine 0.2 mg/dL (<2.0)
--- NOTE | 2025-03-31 08:41 | P.PNAN_ITS ---
Anes - Initial Pre Proc Eval Procedure: Operation Date: 03/31/25 08:30 Proposed Procedures p Left Extracorporeal Shock Wave Lithotripsy - Kamaljit Redman MD Date/Time: 03/31/25 08:41 Surgeon: Kamaljit Redman MD Pre Op Diagnosis: left ureteral stones Patient Data Age: 54 Gender: F Height: 1.52 m Weight: 88.3 kg Last Vital Signs Temp 97.4 F L 03/31/25 07:00 Pulse 85 03/31/25 07:00 Resp 16 03/31/25 07:00 BP 127/85 03/31/25 07:00 Pulse Ox 98 03/31/25 07:00 O2 Del Method Room Air 03/31/25 07:00 Allergies Allergy/AdvReac Type Severity Reaction Status Date / Time PETER Inhibitors AdvReac Unknown Cough Verified 03/31/25 07:05 Home Medications ?Medication ?Instructions ?Recorded ?Confirmed ?Type metoprolol tartrate 100 mg tablet 100 mg PO Q12H #180 tabs 12/08/24 03/31/25 Rx semaglutide 2 mg/dose (8 mg/3 mL) 2 mg (0.75 mL) subcut WEEKLY #3 mL 01/31/25 03/31/25 Rx subcutaneous pen injector (Ozempic) losartan 25 mg tablet See Rx Instructions .Route 03/14/25 03/27/25 Rx .COMPLEX #180 tabs lovastatin 20 mg tablet 20 mg PO QPM 03/14/25 03/27/25 History cefdinir 300 mg capsule 300 mg PO Q12H #28 caps 03/15/25 03/31/25 Rx hydrocodone 5 mg-acetaminophen 325 1 tablet PO Q4H PRN Pain Rated 4-6 03/15/25 03/27/25 Rx mg tablet #10 tabs ondansetron 4 mg disintegrating 4 mg PO Q8H PRN nausea and 03/15/25 03/27/25 Rx tablet vomiting #10 tabs Laboratory Tests 03/31/25 03/31/25 03/31/25 06:35 06:38 07:08 POC Capillary Glucose 120 H mg/dl (65-105) Urine Color Yellow (Yellow) Urine Appearance Clear (Clear) Urine pH 5.0 (5.0-9.0) Ur Specific [place] 1.020 (1.001-1.035) Urine Protein Negative mg/dL (Negative) Urine Glucose (UA) Negative mg/dL (Negative) Urine Ketones Negative mg/dL (Negative) Ur Blood (Man) Negative (Negative) Urine Nitrate Negative (Negative) Urine Bilirubin Negative (Negative) Urine Urobilinogen 0.2 mg/dL (<2.0) Leukocyte Esterase Rfl 1+ H OMAR/UL (Negative) Urine RBC 0-2 /hpf (0-2) Urine WBC 11-20 H /hpf (0-3) Ur Squamous Epith Cells Occasional /hpf (Few) Urine Bacteria None seen /hpf Urine Casts 0-2 POC Urine HCG, Qual Negative (Negative) Patient hx anesthesia problems: post op nausea/vomiting Family hx anesthesia problems: none Results Review: All pre-operative results and documents have been reviewed as part of the pre- operative evaluation. [facility] Past Medical History Medical History Screening for colon cancer GERD (gastroesophageal reflux disease) Hyperlipidemia Hepatic steatosis Diabetes type 2, controlled Screening for thyroid disorder Screening for lipid disorders Screening for thyroid disorder Essential (primary) hypertension History of kidney stones Screening for thyroid disorder Trochanteric bursitis Bilateral hip bursitis Surgical History Surgical History History of renal stent Family History Family History Grandparent Hypertension Family history of lung cancer Heart disease Uterine cancer Mother Hypertension Asthma Hyperlipidemia GERD (gastroesophageal reflux disease) Father Diabetes mellitus Sibling Hypertension GERD (gastroesophageal reflux disease) Social History Social History Social History: Patient lives with her of 30 years who will be her surrogate (Ziyad) that lives in [place], [place]. She has two daughters, one which is 23 and , and the other is 17 a senior in high school and wants to be a teacher. She wishes to be a full code at this time. 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[employer] Gender identity (if verbalized by the patient): Female Sexual Orientation (if Verbalized by the Patient): Straight or Heterosexual Spiritual care concerns: No Agree to blood products: Yes Anes - Eval Final PreProcedure Day of Procedure 03/31/25 08:41 Patient weight: obese Heart: regular rate and rhythm Lungs: clear to auscultation Airway: Mallampati scale class II Neurological: alert and oriented Last oral intake: >/= 8 hours ASA classification: III Emergent: no Anesthetic plan: proceed Anesthesia type and monitoring: general LMA and standard monitoring Results Review: All pre-operative results and documents have been reviewed as part of the pre- operative evaluation. Informed Consent: The patient's anesthetic plan and its attendant risks and benefits were discussed with the patient/family/POA. Questions were solicited and answers provided to the satisfaction of the patient/family/POA.
[2025-03-31] MEDS: SCOPOLAMINE 1 MG PATCH 1 PATCH TRANSDERM (08:44)
[2025-03-31] MEDS: ceFAZolin 2 GM/D5W 50 ML 2 GM/50 ML BAG IVPB (08:47)
--- NOTE | 2025-03-31 09:23 | P.OP_ITS ---
Procedure Note - Detailed Date of Procedure 03/31/25 Pre-op Diagnosis left UPJ calculus-6 7 mm Post-op Diagnosis Same Procedure Performed Lithotripsy of left UPJ calculus Surgeon Kamaljit Redman MD Anesthesia General Description of Procedure Patient was taken to the operative suite correctly identified. Once anesthesia was obtained the stone was localized in both planes. Two thousand five hundred shocks were given the stone. Patient tolerated procedure well without any complications and was taken recovery stable condition. She will follow-up in 7- 10 days with KUB. This completes dictation. Please send a copy of op note to my office Estimated Blood Loss 0 Drains No Packing No Pathology None sent Complications No immediate complications Condition Stable Disposition PACU
[2025-03-31 09:42] LABS: Glucose Point of Care 95 mg/dl (65-105)
== END 2025-03-31 11:10 | disposition home or self-care (01) ==
PROVIDERS: PCP Family Medicine; Visit Provider Urology
PROC: (CPT 50590; principal; 2025-03-31 08:30)
DX: N20.0 Calculus of kidney (principal); N39.0 Urinary tract infection, site not specified; E78.5 Hyperlipidemia, unspecified; K21.9 Gastro-esophageal reflux disease without esophagitis; E11.9 Type 2 diabetes mellitus without complications; I10 Essential (primary) hypertension; E66.9 Obesity, unspecified; Z68.38 Body mass index [BMI] 38.0-38.9, adult; Z79.85 Long-term (current) use of injectable non-insulin antidiabetic drugs; Z79.891 Long term (current) use of opiate analgesic; Z96.0 Presence of urogenital implants; Z87.19 Personal history of other diseases of the digestive system; Z80.1 Family history of malignant neoplasm of trachea, bronchus and lung; Z80.49 Family history of malignant neoplasm of other genital organs; Z82.49 Family history of ischemic heart disease and other diseases of the circulatory system
CPT/HCPCS: 50590; 74018; 81001; 82948; 87086; A9270; J0690; J2003; J2250; J2371; J2405; J3010; J7120

== ENCOUNTER 2025-04-06 08:01 | Outpatient (CLI) | payer OTHER, SELFPAY ==
--- NOTE | ~2025-04-06 | XR_ITS ---
XR abdomen/kub 1V 04/06/2025 08:26 INDICATION: Left ureteral stone TECHNIQUE: KUB COMPARISON: 03/31/2025 FINDINGS: Bowel gas pattern is normal. There is no evidence of free air, mass, organomegaly, ascites or obstruction. No abnormal calculi are seen. The bones appear intact. Left ureteral stone seen on prior examination not visualized on the current study. IMPRESSION: 1: No acute abdominal abnormality identified. Reviewed, dictated and finalized at location []
== END 2025-04-06 08:02 | disposition home or self-care (01) ==
PROVIDERS: PCP Family Medicine; Visit Provider Urology
DX: N20.1 Calculus of ureter (principal)
CPT/HCPCS: 74018

== ENCOUNTER 2025-06-27 08:43 | Outpatient (CLI) | payer OTHER, SELFPAY ==
[2025-06-27 09:51] LABS: Hemoglobin A1C 6.0 % (<5.7)
[2025-06-27 09:52] LABS: Cholesterol 216 mg/dL (0-200); HDL Direct 48 mg/dL; Triglycerides 231 mg/dL (<150)
[2025-06-27 10:10] LABS: Free T4 Free Thyroxine 1.12 ng/dL (0.78-2.19)
[2025-06-27 10:16] LABS: MALB Creatinine Ratio 8.5 mg/g (0-30)
[2025-06-27 10:28] LABS: Thyroid Stimulating Hormone 1.290 uIU/mL (0.465-4.680)
== END 2025-06-27 08:44 | disposition home or self-care (01) ==
LOC: ANHLAB 08:44
PROVIDERS: PCP Family Medicine; Visit Provider Nurse Practitioner Family
DX: E78.2 Mixed hyperlipidemia (principal); I10 Essential (primary) hypertension; E11.9 Type 2 diabetes mellitus without complications; E04.1 Nontoxic single thyroid nodule; E55.9 Vitamin D deficiency, unspecified
CPT/HCPCS: 36415; 80061; 82043; 82306; 83036; 84439; 84443

== ENCOUNTER 2025-07-24 14:30 | Outpatient (RCR) | payer OTHER, SELFPAY ==
--- NOTE | 2025-06-30 11:49 | OPREHPOC ---
Outpatient Therapy Plan of Care This is a Multidisciplinary Plan of Care that may contain components documented by all disciplines (PT, OT, and ST.) PT Problem 1 PT Problem #1 Knowledge Deficit PT Goal 1 Goal / Goal Update *independent with HEP Target Visit 6 PT Problem 2 PT Problem #2 Impaired Range of Motion PT Goal 1 Goal / Goal Update increase R knee ROM to improve mobility and transfer skills: 1* sitting active knee flexion to 125' 2* anterior hip-quad length with prone knee flexion 125' Target Visit 6 PT Problem 3 PT Problem #3 Impaired Strength PT Goal 1 Goal / Goal Update 1*single leg standing R x 20 seconds with good stability 2* R hip and knee strength of 4+/5 Target Visit 6 PT Problem 4 PT Problem #4 Pain PT Goal 1 Goal / Goal Update 1* pt report pain at worst rating of 2/10 2* pt report with sleeping awaken due to knee pain 2x/night
--- NOTE | 2025-06-30 11:49 | PTOPEVAL1 ---
Assessment and note entered by Ada Richards, PT Evaluation Information Assessment Status Evaluation ICD-10 Condition Codes (PT) Pain in right knee M25.561,Difficulty Walking R26. 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 LE functional scale rating of 28% limitation in activity level. 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 Activity level, walking, stairs and sleeping are disrupted due to knee pain. With the evaluation: her history includes: bilateral hip bursitis, intermittent back pain, obesity. Posture of lateral placed patella, with knee hyperextension and valgus bilateral; R LE with decreased hamstring and anterior hip-quad flexibility; increase pain with single leg standing on R; pain and tenderness over medial and lateral joint line and ITB and distal-medial hamstring. Skilled PT services are indicated for treatment of R knee pain/ possible meniscal tear: modalities to decrease pain, therapeutic exercises to increase strength and flexibility with education for HEP, posture and pain control. Plan of Care Interventions Electrical Stimulation,Hot Pack/Cold Pack,Manual Therapy,Neuro Re-education,Patient/Caregiver Education,Therapeutic Activities,Therapeutic Exercise,Ultrasound,Other Other Interventions taping PT Services Indicated Yes Treatment Frequency and 1-2 x/ week for 6 visits Duration These treatments will address the objective and functional deficits as defined above. The patient will be advanced safely and appropriately in order for the patient to progress towards his/her prior level of function. Additional exercises will be introduced and as well as a comprehensive home exercise program upon discharge, if needed, ?to ensure carryover of functional gains achieved in the clinic. This treatment plan has been reviewed and agreement upon by the patient.
--- NOTE | 2025-07-18 08:01 | PCPTNOTE ---
Cancelled per front office. DINAH
--- NOTE | 2025-07-24 15:08 | OPREHPOC ---
Outpatient Therapy Plan of Care This is a Multidisciplinary Plan of Care that may contain components documented by all disciplines (PT, OT, and ST.) PT Problem 1 PT Problem #1 Knowledge Deficit PT Goal 1 Goal / Goal Update *independent with HEP 07-24-25 d/c goal met Target Visit 6 Progress Met PT Problem 2 PT Problem #2 Impaired Range of Motion PT Goal 1 Goal / Goal Update increase R knee ROM to improve mobility and transfer skills: 1* sitting active knee flexion to 125' 2* anterior hip-quad length with prone knee flexion 125' 07-24-25 d/c goals met Target Visit 6 Progress Met PT Problem 3 PT Problem #3 Impaired Strength PT Goal 1 Goal / Goal Update 1*single leg standing R x 20 seconds with good stability 2* R hip and knee strength of 4+/5 07-24-25 d/c goals met Target Visit 6 Progress Met PT Problem 4 PT Problem #4 Pain PT Goal 1 Goal / Goal Update 1* pt report pain at worst rating of 2/10 2* pt report with sleeping awaken due to knee pain 2x/night 07-24-25 d/c goals not met; #1 3/10; #2 4-5x/night Target Visit 6 Progress Not Met
--- NOTE | 2025-07-24 15:08 | PTOPDC ---
Assessment and note entered by Ada Richards, PT Assessment Status Discharge ICD-10 Condition Codes (PT) Pain in right knee M25.561,Difficulty Walking R26. 2,Abnormalities of gait and mobility R26.9 Onset Nov 2024 Subjective Information fell last week with walking outside and in the dark, stepped on uneven ground, fell forward, landed on L knee and R hand; open wound on L knee ; had cataract surgery on R eye last week and to have L eye done soon; Reported Pain Level Pain Score Self Report Additional Pain Score Comments pain range in the past week: 0-3/10; uncomfortable increase pain: lie with leg out straight, stairs- full wt on R leg decrease pain: sit, rest with sleeping, awaken from sleeping due to knee pain 3-4x/night, able to return to sleep faster, does not keep her awake also have bursitis in both hips and problems lying on her sides; Assessment PT Clinical Summary Christine has received 5 PT sessions & she called and canceled 1 appointment. She fell forward last week and hurt her L knee and foot, with open wound over distal knee. Compared to the initial evaluation: pain range from 0-4 to 0-3/10; self assessment with LE functional scale is about the same at 29% limitation; reported sleeping tolerance is same at awakening 4-5 x/night; increase active knee flexion to 125' and anterior hip-quad length with prone knee flexion 125'; improve single leg standing to 22 seconds; education for HEP completed. The goals were partially met. Discharge PT. She is to continue with HEP and monitor pain with more activity. Plan of Care PT Services Indicated No
== END 2025-07-25 08:45 | disposition home or self-care (01) ==
LOC: ANHPT 14:30
PROVIDERS: PCP Family Medicine; Visit Provider Nurse Practitioner Family
DX: M25.561 Pain in right knee (principal); R26.2 Difficulty in walking, not elsewhere classified; R26.9 Unspecified abnormalities of gait and mobility
CPT/HCPCS: 97110; 97161; 97530

== ENCOUNTER 2025-09-07 13:31 | Outpatient (CLI) | payer OTHER, SELFPAY ==
--- NOTE | ~2025-09-07 | MR_ITS ---
EXAMINATION: MR knee RT wo con DATE: 09/07/2025 14:09 INDICATION: Right knee pain TECHNIQUE: Magnetic resonance imaging (MRI) of the right knee was performed without intravenous contrast. Sequences included coronal PD-weighted FSE, coronal PD-weighted FS FSE, sagittal T2-weighted FSE, sagittal PD-weighted FS FSE and axial PD weighted fat saturated FSE. COMPARISON: None. FINDINGS: Medial compartment: Medial extrusion of the medial meniscal body with full-thickness radial tear of the posterior horn near the posterior root there is an additional longitudinal horizontal tear plane extending to the inferior articular surface at the posterior body of the medial meniscus. There is partial thickness chondral ulceration which appears to involve at least 50% of the cartilage thickness along the medial half of the anterior to central weightbearing medial femoral condyle. Subarticular edema-like signal change along the medial rim of the central weightbearing medial femoral condyle. Articular cartilage along the medial tibial plateau is relatively preserved. Lateral compartment: Lateral meniscus is normal. Mild partial-thickness chondral fissure at the central aspect of the lateral tibial plateau. Cartilage along the weightbearing lateral femoral condyles relatively preserved. Patellofemoral compartment: Mild partial-thickness chondral ulceration at the cephalad aspect of the patellar apical ridge and adjacent superolateral aspect of the medial patellar facet. Partial-thickness chondral ulceration and deeper fissuring with mild irregularity to the underlying articular cortex at the Central aspect of the medial trochlea. Ligaments and tendons: Anterior and posterior cruciate ligaments are normal. The fibular collateral ligament complex is normal. Mild thickening and mild increased signal of the proximal medial collateral ligament without surrounding edema to suggest acute injury consistent with mild scarring related to chronic sprain. The extensor mechanism is normal. The visualized medial and lateral hamstring tendons as well as the iliotibial band are normal. Fluid: Very small right knee joint effusion at the suprapatellar pouch. There is also a small Ellis's cyst measuring 3.2 x 1.2 x 1.2 cm. No loose osteochondral bodies identified. Osseous/other: Bone alignment is normal. No fracture or pathologic marrow replacing process. IMPRESSION: 1. Complex medial meniscal tear with radial tear near the posterior root and longitudinal horizontal tear at the medial extruded posterior body of the meniscus. 2. 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 3. Very small right knee joint effusion and small Ellis's cyst. Reviewed, dictated and finalized at location A. ETIST IMPRESSION: 1. Complex medial meniscal tear with radial tear near the posterior root and lo ngitudinal horizontal tear at the medial extruded posterior body of the meniscu s. 2. Mild osteoarthritis with regions of moderate and high-grade chondromalacia a t the medial and patellofemoral compartments. 3. Very small right knee joint effusion and small Ellis's cyst.
== END 2025-09-07 13:32 | disposition home or self-care (01) ==
LOC: GOSHIMG 13:32
PROVIDERS: PCP Family Medicine; Visit Provider Nurse Practitioner Family
DX: S83.231A Complex tear of medial meniscus, current injury, right knee, initial encounter (principal); X58.XXXA Exposure to other specified factors, initial encounter; M17.11 Unilateral primary osteoarthritis, right knee; M25.461 Effusion, right knee; M71.21 Synovial cyst of popliteal space [Baker], right knee
CPT/HCPCS: 73721